=== PATIENT | female | born 1990 | race Caucasian/White ===

== ENCOUNTER 2017-12-22 04:56 | Emergency (ER) | payer OTHER ==
[2017-12-22] MEDS ORDERED: ISOVUE-370 76% 100ML VIAL (Q9967) As Ordered (05:48)
[2017-12-22 05:55] LABS: HEMATOCRIT 46.7 % (36.0-47.0); HEMOGLOBIN 15.8 g/dl (12.0-16.0); MEAN CORPUSCULAR HEMOGLOBIN 29.6 pg (27.0-33.0); MEAN CORPUSCULAR HGB CONC 33.8 g/dl (32.0-36.5); MEAN CORPUSCULAR VOLUME 87.5 fl (80.0-96.0); PLATELET COUNT, AUTOMATED 304 10^3/uL (150-450); RED BLOOD COUNT 5.34 10^6/uL (4.00-5.40); RED CELL DISTRIBUTION WIDTH 13.5 % (11.5-14.5); WHITE BLOOD COUNT 20.8 10^3/uL (4.0-10.0)
[2017-12-22 06:09] LABS: INR 0.93; PARTIAL THROMBOPLASTIN TIME 26.6 SECONDS (26.8-37.9); PROTHROMBIN TIME 12.5 SECONDS (12.4-14.5)
[2017-12-22 06:12] LABS: CONTROL LINE HCG INT CTR LINE PRESENT; HCG, SERUM QUALITATIVE NEGATIVE (NEGATIVE)
[2017-12-22 06:13] LABS: ALBUMIN 4.2 GM/DL (3.2-5.2); ALBUMIN/GLOBULIN RATIO 1.17 (1.00-1.93); ALKALINE PHOSPHATASE 84 U/L (45-117); ALT/SGPT 23 U/L (12-78); ANION GAP 11 MEQ/L (8-16); AST/SGOT 24 U/L (7-37); BILIRUBIN,TOTAL 0.4 MG/DL (0.2-1.0); BLOOD UREA NITROGEN 13 MG/DL (7-18); CALCIUM LEVEL 9.4 MG/DL (8.5-10.1); CARBON DIOXIDE LEVEL 25 MEQ/L (21-32); CHLORIDE LEVEL 111 MEQ/L (98-107); CREATININE FOR GFR 0.68 MG/DL (0.55-1.30); GLOMERULAR FILTRATION RATE > 60.0 (>60); GLUCOSE, FASTING 100 MG/DL (70-100); LIPASE 290 U/L (73-393); SODIUM LEVEL 147 MEQ/L (136-145); TOTAL PROTEIN 7.8 GM/DL (6.4-8.2)
[2017-12-22 08:10] LABS: AMYLASE 70 U/L (25-115); CK-MB VALUE MASS 1.9 NG/ML (0.0-3.6); CPK CREATINE PHOSPHOKINASE 105 U/L (26-192); ETHYL ALCOHOL (ETHANOL) 0.163 % (0.000-0.010); TROPONIN I < 0.02 NG/ML (< 0.10)
[2017-12-22 10:21] LABS: HEMATOCRIT 43.3 % (36.0-47.0); HEMOGLOBIN 14.7 g/dl (12.0-16.0); MEAN CORPUSCULAR HEMOGLOBIN 29.5 pg (27.0-33.0); MEAN CORPUSCULAR HGB CONC 33.9 g/dl (32.0-36.5); MEAN CORPUSCULAR VOLUME 86.9 fl (80.0-96.0); PLATELET COUNT, AUTOMATED 289 10^3/uL (150-450); RED BLOOD COUNT 4.98 10^6/uL (4.00-5.40); RED CELL DISTRIBUTION WIDTH 13.7 % (11.5-14.5); WHITE BLOOD COUNT 17.5 10^3/uL (4.0-10.0)
[2017-12-22] MEDS: ONDANSETRON 4MG/2ML VIAL (J2405) IV (10:30)
[2017-12-22] MEDS ORDERED: NS 1,000 ML IV (10:48)
[2017-12-22] MEDS: NS 1,000 ML IV (11:00)
[2017-12-22] MEDS: MORPHINE 4 MG/ML 1ML VIAL (J2270) IV (11:01)
== END 2017-12-22 12:11 | disposition home or self-care (01) ==
LOC: M ED 04:56
DX: Z04.1 Encounter for examination and observation following transport accident (principal); S22.20XA Unspecified fracture of sternum, initial encounter for closed fracture; S80.11XA Contusion of right lower leg, initial encounter; W22.11XA Striking against or struck by driver side automobile airbag, initial encounter; V48.5XXA Car driver injured in noncollision transport accident in traffic accident, initial encounter; Y92.410 Unspecified street and highway as the place of occurrence of the external cause; Z88.5 Allergy status to narcotic agent; Z88.2 Allergy status to sulfonamides; Z91.048 Other nonmedicinal substance allergy status
CPT/HCPCS: J2270

== ENCOUNTER 2017-12-25 12:38 | Emergency (ER) | payer OTHER ==
[2017-12-25] MEDS: MORPHINE 10 MG/ML 1ML VIAL (J2270) IM (14:52)
[2017-12-25] MEDS: METOCLOPRAMIDE INJ 10MG/2ML VIAL (J2765) IM (14:52)
== END 2017-12-25 15:15 | disposition home or self-care (01) ==
LOC: M ED 12:38
DX: S22.20XD Unspecified fracture of sternum, subsequent encounter for fracture with routine healing (principal); S06.0X0D Concussion without loss of consciousness, subsequent encounter; V87 Traffic accident of specified type but victim's mode of transport unknown; Z88.2 Allergy status to sulfonamides; Z91.048 Other nonmedicinal substance allergy status
CPT/HCPCS: J2765

== ENCOUNTER → 2018-02-13 | Outpatient (REF) | payer BC | LOC: M LAB REF 19:21 | DX: N39.0 Urinary tract infection, site not specified (principal) | CPT/HCPCS: 87186 ==

== ENCOUNTER 2018-06-03 10:07 | Inpatient (IN) | payer BC ==
[2018-06-03 10:46] LABS: HEMATOCRIT 43.7 % (36.0-47.0); HEMOGLOBIN 14.8 g/dl (12.0-15.5); MEAN CORPUSCULAR HEMOGLOBIN 30.6 pg (27.0-33.0); MEAN CORPUSCULAR HGB CONC 33.9 g/dl (32.0-36.5); MEAN CORPUSCULAR VOLUME 90.3 fl (80.0-96.0); PLATELET COUNT, AUTOMATED 269 10^3/uL (150-450); RED BLOOD COUNT 4.84 10^6/uL (4.00-5.40); RED CELL DISTRIBUTION WIDTH 13.1 % (11.5-14.5); WHITE BLOOD COUNT 11.1 10^3/uL (4.0-10.0)
[2018-06-03 11:00] LABS: CONTROL LINE HCG INT CTR LINE PRESENT; HCG, SERUM QUALITATIVE NEGATIVE (NEGATIVE)
[2018-06-03 11:15] LABS: ALBUMIN 3.8 GM/DL (3.2-5.2); ALBUMIN/GLOBULIN RATIO 1.06 (1.00-1.93); ALKALINE PHOSPHATASE 75 U/L (45-117); ALT/SGPT 18 U/L (12-78); ANION GAP 9 MEQ/L (8-16); AST/SGOT 11 U/L (7-37); BILIRUBIN,DIRECT 0.1 MG/DL (0.0-0.2); BILIRUBIN,TOTAL 0.3 MG/DL (0.2-1.0); BLOOD UREA NITROGEN 14 MG/DL (7-18); CALCIUM LEVEL 8.7 MG/DL (8.5-10.1); CARBON DIOXIDE LEVEL 23 MEQ/L (21-32); CHLORIDE LEVEL 113 MEQ/L (98-107); CREATININE FOR GFR 0.83 MG/DL (0.55-1.30); ETHYL ALCOHOL (ETHANOL) 0.033 % (0.000-0.010); GLOMERULAR FILTRATION RATE > 60.0 (>60); GLUCOSE, FASTING 92 MG/DL (70-100); POTASSIUM SERUM 4.1 MEQ/L (3.5-5.1); SALICYLATE LEVEL 2.8 MG/DL (5.0-30.0); SODIUM LEVEL 145 MEQ/L (136-145); TOTAL PROTEIN 7.4 GM/DL (6.4-8.2)
[2018-06-03 11:18] LABS: AMPHETAMINES LEVEL URINE NEGATIVE (NEGATIVE); BARBITURATES URINE NEGATIVE (NEGATIVE); BENZODIAZEPINES URINE NEGATIVE (NEGATIVE); CANNABINOIDS URINE NEGATIVE (NEGATIVE); COCAINE METABOLITE URINE NEGATIVE (NEGATIVE); METHADONE URINE NEGATIVE (NEGATIVE); OPIATES URINE NEGATIVE (NEGATIVE); PHENCYCLIDINE URINE NEGATIVE (NEGATIVE)
[2018-06-03 11:21] LABS: ACETAMINOPHEN LEVEL < 2.0 UG/ML (10.0-30.0)
[2018-06-03] MEDS: NICOTINE 21MG/24HR 1 EA TRANSDERMAL TD (13:13)
[2018-06-03] MEDS ORDERED: traZODone 50 MG TAB PO (18:30)
[2018-06-03] MEDS ORDERED: MAALOX 30 ML SUSP *UDC PO (18:30)
[2018-06-03] MEDS ORDERED: MOM 30ML SUSPENSION UDC PO (18:30)
[2018-06-03] MEDS ORDERED: OXAZEPAM 15 MG CAP PO (19:30)
[2018-06-03] MEDS: OXAZEPAM 15 MG CAP PO (21:27)
[2018-06-04] MEDS: FOLIC ACID 1 MG TAB PO (08:55)
[2018-06-04] MEDS: MULTIVITAMINS/MINERALS THERAP 1 TAB PO (08:55)
[2018-06-04] MEDS: THIAMINE 100 MG TAB PO (08:55)
[2018-06-04] MEDS: OXAZEPAM 15 MG CAP PO (08:55)
[2018-06-04] MEDS: NICOTINE 21MG/24HR 1 EA TRANSDERMAL TD (08:56)
[2018-06-04] MEDS ORDERED: BACITRACIN OINT 30GM TOP (10:00)
[2018-06-04 12:19] LABS: KETONE, URINE AUTO RFX NEGATIVE (NEGATIVE); MUCUS, URINE RFX SMALL (NEGATIVE); NITRITE, URINE AUTO RFX NEGATIVE (NEGATIVE); RBC, URINE AUTO RFX 9 /HPF (0-3); SPECIFIC GRAVITY UR AUTO RFX 1.006 (1.002-1.035); SQUAM EPITHELIAL CELL UR AURFX 20 /HPF (0-6)
[2018-06-04 12:26] LABS: LEUKOCYTE ESTERASE UR AUTO RFX 3+ (NEGATIVE); WBC, URINE AUTO RFX 91 /HPF (0-3)
[2018-06-04] MEDS: SERTRALINE HCL 50 MG TAB PO (15:27)
[2018-06-04] MEDS: LORazepam 1 MG TAB PO ×2 (15:32→18:00)
[2018-06-04] MEDS: IBUPROFEN 400 MG TAB PO (18:38)
[2018-06-04] MEDS: DOXEPIN 25 MG CAP PO (22:32)
[2018-06-04] MEDS: PRAZOSIN 1 MG CAP PO (22:33)
[2018-06-05] MEDS: LORazepam 1 MG TAB PO ×2 (06:00)
[2018-06-05 07:18] LABS: HEMATOCRIT 43.4 % (36.0-47.0); HEMOGLOBIN 14.7 g/dl (12.0-15.5); MEAN CORPUSCULAR HEMOGLOBIN 31.1 pg (27.0-33.0); MEAN CORPUSCULAR HGB CONC 33.9 g/dl (32.0-36.5); MEAN CORPUSCULAR VOLUME 91.8 fl (80.0-96.0); PLATELET COUNT, AUTOMATED 228 10^3/uL (150-450); RED BLOOD COUNT 4.73 10^6/uL (4.00-5.40); RED CELL DISTRIBUTION WIDTH 12.9 % (11.5-14.5); WHITE BLOOD COUNT 8.9 10^3/uL (4.0-10.0)
[2018-06-05] MEDS: NICOTINE 21MG/24HR 1 EA TRANSDERMAL TD (08:07)
[2018-06-05] MEDS: THIAMINE 100 MG TAB PO (08:07)
[2018-06-05] MEDS: MULTIVITAMINS/MINERALS THERAP 1 TAB PO (08:07)
[2018-06-05] MEDS: FOLIC ACID 1 MG TAB PO (08:07)
[2018-06-05] MEDS: SERTRALINE HCL 50 MG TAB PO (08:07)
[2018-06-05] MEDS: diphenhydrAMINE 25 MG CAP PO (11:50)
[2018-06-05] MEDS: OLANZapine ORAL DISINTEGRATING TAB 5MG PO (17:00)
[2018-06-05] MEDS: LORazepam 2 MG TAB PO (18:24)
[2018-06-05] MEDS: NALTREXONE 50 MG TAB PO (21:00)
[2018-06-05] MEDS: DOXEPIN 25 MG CAP PO (21:00)
[2018-06-05] MEDS: PRAZOSIN 1 MG CAP PO (21:00)
[2018-06-06] MEDS: MULTIVITAMINS/MINERALS THERAP 1 TAB PO (08:29)
[2018-06-06] MEDS: THIAMINE 100 MG TAB PO (08:29)
[2018-06-06] MEDS: FOLIC ACID 1 MG TAB PO (08:29)
[2018-06-06] MEDS: SERTRALINE HCL 50 MG TAB PO (08:29)
[2018-06-06] MEDS: NICOTINE 21MG/24HR 1 EA TRANSDERMAL TD (08:30)
[2018-06-06] MEDS: CIPROFLOXACIN 500 MG TAB PO ×2 (09:37→17:37)
[2018-06-06] MEDS: IBUPROFEN 400 MG TAB PO (16:25)
[2018-06-06] MEDS: NALTREXONE 50 MG TAB PO (21:39)
[2018-06-06] MEDS: PRAZOSIN 1 MG CAP PO (21:39)
[2018-06-06] MEDS: DOXEPIN 25 MG CAP PO (21:39)
[2018-06-07] MEDS: CIPROFLOXACIN 500 MG TAB PO ×2 (06:01→17:12)
[2018-06-07] MEDS: FOLIC ACID 1 MG TAB PO (08:34)
[2018-06-07] MEDS: SERTRALINE HCL 50 MG TAB PO (08:34)
[2018-06-07] MEDS: THIAMINE 100 MG TAB PO (08:34)
[2018-06-07] MEDS: MULTIVITAMINS/MINERALS THERAP 1 TAB PO (08:34)
[2018-06-07] MEDS: NICOTINE 21MG/24HR 1 EA TRANSDERMAL TD (08:35)
[2018-06-07] MEDS: IBUPROFEN 400 MG TAB PO (11:53)
[2018-06-07] MEDS: PRAZOSIN 1 MG CAP PO (21:00)
[2018-06-07] MEDS: DOXEPIN 25 MG CAP PO (21:00)
[2018-06-07] MEDS: NALTREXONE 50 MG TAB PO (21:00)
[2018-06-08] MEDS: CIPROFLOXACIN 500 MG TAB PO ×2 (06:09→17:03)
[2018-06-08] MEDS: FOLIC ACID 1 MG TAB PO (08:23)
[2018-06-08] MEDS: MULTIVITAMINS/MINERALS THERAP 1 TAB PO (08:23)
[2018-06-08] MEDS: NICOTINE 21MG/24HR 1 EA TRANSDERMAL TD (08:23)
[2018-06-08] MEDS: SERTRALINE HCL 50 MG TAB PO (08:24)
[2018-06-08] MEDS: THIAMINE 100 MG TAB PO (08:24)
[2018-06-08] MEDS: IBUPROFEN 400 MG TAB PO (17:03)
[2018-06-08] MEDS: NALTREXONE 50 MG TAB PO (21:56)
[2018-06-08] MEDS: DOXEPIN 25 MG CAP PO (21:56)
[2018-06-08] MEDS: PRAZOSIN 1 MG CAP PO (21:58)
[2018-06-09] MEDS: CIPROFLOXACIN 500 MG TAB PO (06:05)
[2018-06-09] MEDS: MULTIVITAMINS/MINERALS THERAP 1 TAB PO (08:31)
[2018-06-09] MEDS: SERTRALINE HCL 50 MG TAB PO (08:31)
[2018-06-09] MEDS: FOLIC ACID 1 MG TAB PO (08:31)
[2018-06-09] MEDS: THIAMINE 100 MG TAB PO (08:31)
[2018-06-09] MEDS: NICOTINE 21MG/24HR 1 EA TRANSDERMAL TD (08:32)
== END 2018-06-09 09:50 | disposition home or self-care (01) | DRG 755 ==
LOC: M PSY 06-04 06:21 → M ED 10:07 → M ED INP 16:16 → M PSY 16:46
DX: F43.10 Post-traumatic stress disorder, unspecified (principal); R45.851 Suicidal ideations; S50.311A Abrasion of right elbow, initial encounter; F17.210 Nicotine dependence, cigarettes, uncomplicated; D72.829 Elevated white blood cell count, unspecified; Z88.2 Allergy status to sulfonamides; J30.2 Other seasonal allergic rhinitis; R35.0 Frequency of micturition; X58.XXXA Exposure to other specified factors, initial encounter; Y92.9 Unspecified place or not applicable; Y93.9 Activity, unspecified

== ENCOUNTER → 2018-06-10 | Outpatient (CLI) | payer BC | LOC: M OUTALCOH 09:01 | DX: F10.20 Alcohol dependence, uncomplicated (principal) ==

== ENCOUNTER 2018-10-31 03:53 | Inpatient (IN) | payer BC, SELFPAY ==
[~2018-10-31] VITALS: Ht 160 cm; Wt 75.7 kg
[~2018-10-31 03:53] MED LIST: ACAM0.05 PO; CIPR-249 PO; DEBL1TAB PO; DIPH25CA PO; DOXE25CA PO; IBUP80TA PO; MINI1CAP PO; NALT50TA4 PO; NORCOTAB PO; PERC5TAB12 PO; REGL10TA6 PO; SERT50TA PO
[2018-10-31] MEDS ORDERED: HYDR-643 PO (04:08)
[2018-10-31] MEDS ORDERED: PROZ20CA11 PO (04:08)
[2018-10-31] MEDS ORDERED: TRAZ-160 (04:08)
[2018-10-31] MEDS ORDERED: PRAZ1CAP (04:08)
[2018-10-31] MEDS ORDERED: LORA0.5T11 PO (04:08)
[2018-10-31 04:15] LABS: BASO # 0.1 10^3/uL (0.0-0.2); BASO % 0.8 % (0.0-1.0); EOS # 0.3 10^3/uL (0.0-0.50); EOS % 2.4 % (0.0-3.0); HEMATOCRIT 46.1 % (36.0-47.0); HEMOGLOBIN 15.7 g/dl (12.0-15.5); LYMPH # 3.3 10^3/uL (1.5-6.5); LYMPH % 26.7 % (24.0-44.0); MEAN CORPUSCULAR HEMOGLOBIN 30.7 pg (27.0-33.0); MEAN CORPUSCULAR HGB CONC 34.1 g/dl (32.0-36.5); MONO # 0.9 10^3/uL (0.0-0.8); NEUTROPHILS # 7.7 10^3/uL (1.8-7.7); NEUTROPHILS % 62.5 % (36.0-66.0); PLATELET COUNT, AUTOMATED 290 10^3/uL (150-450); RED BLOOD COUNT 5.12 10^6/uL (4.00-5.40); WHITE BLOOD COUNT 12.2 10^3/uL (4.0-10.0)
[2018-10-31] MEDS ORDERED: NS 1,000 ML IV ONE ×4 (04:15→10:00)
[2018-10-31 04:39] LABS: OSMOLALITY SERUM 370 MOSM/KG (275-295)
[2018-10-31 04:42] LABS: HCG, SERUM QUALITATIVE NEGATIVE (NEGATIVE)
[2018-10-31 05:02] LABS: ACETAMINOPHEN LEVEL < 2.0 UG/ML (10.0-30.0); ALBUMIN 3.9 GM/DL (3.2-5.2); ALT/SGPT 19 U/L (12-78); BILIRUBIN,DIRECT < 0.1 MG/DL (0.0-0.2); BILIRUBIN,TOTAL 0.2 MG/DL (0.2-1.0); BLOOD UREA NITROGEN 13 MG/DL (7-18); CALCIUM LEVEL 8.6 MG/DL (8.5-10.1); CARBON DIOXIDE LEVEL 23 MEQ/L (21-32); CHLORIDE LEVEL 112 MEQ/L (98-107); CPK CREATINE PHOSPHOKINASE 104 U/L (26-192); CREATININE FOR GFR 0.92 MG/DL (0.55-1.30); ETHYL ALCOHOL (ETHANOL) 0.238 % (0.000-0.010); GLOMERULAR FILTRATION RATE > 60.0 (>60); GLUCOSE, FASTING 93 MG/DL (70-100); POTASSIUM SERUM 3.8 MEQ/L (3.5-5.1); SALICYLATE LEVEL < 1.7 MG/DL (5.0-30.0); SODIUM LEVEL 146 MEQ/L (136-145); TOTAL PROTEIN 7.3 GM/DL (6.4-8.2)
[2018-10-31 06:11] LABS: ABG BASE EXCESS -7.1 (-2.0-2.0); ABG HCO3 19.1 MEQ/L (22.0-26.0); ABG O2 SATURATION 95.9 % (95.0-99.0); ABG PARTIAL PRESSURE O2 88.8 mmHg (75.0-100.0); ABG STANDARD HCO3 18.7 MEQ/L (22.0-26.0); ABG TOTAL CO2 20.4 MEQ/L (22.0-29.0); ABG pH (ARTERIAL) 7.287 UNITS (7.350-7.450)
[2018-10-31 06:32] LABS: AMPHETAMINES LEVEL URINE NEGATIVE (NEGATIVE); BARBITURATES URINE NEGATIVE (NEGATIVE); BENZODIAZEPINES URINE NEGATIVE (NEGATIVE); CANNABINOIDS URINE NEGATIVE (NEGATIVE); COCAINE METABOLITE URINE NEGATIVE (NEGATIVE); METHADONE URINE NEGATIVE (NEGATIVE); OPIATES URINE NEGATIVE (NEGATIVE); PHENCYCLIDINE URINE NEGATIVE (NEGATIVE)
[2018-10-31 07:14] LABS: ABG BASE EXCESS -6.7 (-2.0-2.0); ABG HCO3 18.1 MEQ/L (22.0-26.0); ABG O2 SATURATION 98.1 % (95.0-99.0); ABG TOTAL CO2 19.1 MEQ/L (22.0-29.0); ABG pH (ARTERIAL) 7.343 UNITS (7.350-7.450)
[2018-10-31] MEDS: NICOTINE 21MG/24HR 1 EA TRANSDERMAL TD SCH (09:00)
--- NOTE | 2018-10-31 09:43 | ECGEPIP ---
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
[2018-10-31] MEDS ORDERED: DIPH25CA PO (13:38)
[2018-10-31] MEDS ORDERED: SERT50TA PO (13:40)
[2018-10-31] MEDS ORDERED: PRAZ1CAP PO (13:40)
[2018-10-31] MEDS ORDERED: MAALOX 30 ML SUSP *UDC PO PRN (18:45)
[2018-10-31] MEDS ORDERED: LORazepam 2 MG TAB PO PRN (18:45)
[2018-10-31] MEDS ORDERED: MOM 30ML SUSPENSION UDC PO PRN (18:45)
[2018-10-31] MEDS ORDERED: traZODone 50 MG TAB PO PRN (18:45)
[2018-10-31] MEDS ORDERED: ACETAMINOPHEN TAB 650MG DOSE (2X325MG) PO PRN (18:45)
[2018-10-31] MEDS: FOLIC ACID 1 MG TAB PO SCH (19:36)
[2018-10-31] MEDS: MULTIVITAMINS/MINERALS THERAP 1 TAB PO SCH (19:37)
[2018-10-31] MEDS: THIAMINE 100 MG TAB PO SCH (19:37)
[2018-10-31 20:35] VITALS: BP 116/67
[2018-11-01 06:33] VITALS: BP 112/72
[2018-11-01 08:47] VITALS: BP 112/72
[2018-11-01] MEDS: MULTIVITAMINS/MINERALS THERAP 1 TAB PO SCH (09:15)
[2018-11-01] MEDS: THIAMINE 100 MG TAB PO SCH ×2 (09:15→21:48)
[2018-11-01] MEDS: NICOTINE 21MG/24HR 1 EA TRANSDERMAL TD SCH (09:15)
[2018-11-01] MEDS: FOLIC ACID 1 MG TAB PO SCH (09:15)
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
[2018-11-01] MEDS: FLUoxetine 10 MG CAP PO SCH (10:17)
[2018-11-01 16:00] VITALS: BP 114/56
[2018-11-01 18:00] VITALS: BP 114/56
[2018-11-01] MEDS: CEPHALEXIN 500 MG CAP PO SCH (21:48)
[2018-11-01] MEDS: PRAZOSIN 1 MG CAP PO SCH (21:48)
[2018-11-01] MEDS: BACITRACIN OINT 30GM TOP SCH (22:15)
[2018-11-01] MEDS: diphenhydrAMINE 50 MG CAP PO PRN (22:43)
[2018-11-02 06:42] VITALS: BP 102/51
[2018-11-02 07:02] LABS: BASO # 0.1 10^3/uL (0.0-0.2); BASO % 0.4 % (0.0-1.0); EOS # 0.3 10^3/uL (0.0-0.50); HEMATOCRIT 43.9 % (36.0-47.0); HEMOGLOBIN 14.8 g/dl (12.0-15.5); LYMPH # 3.4 10^3/uL (1.5-6.5); LYMPH % 24.8 % (24.0-44.0); MEAN CORPUSCULAR HGB CONC 33.7 g/dl (32.0-36.5); MEAN CORPUSCULAR VOLUME 91.8 fl (80.0-96.0); MONO # 0.9 10^3/uL (0.0-0.8); MONO % 6.9 % (0.0-5.0); NEUTROPHILS # 8.8 10^3/uL (1.8-7.7); NEUTROPHILS % 65.5 % (36.0-66.0); PLATELET COUNT, AUTOMATED 248 10^3/uL (150-450); RED BLOOD COUNT 4.78 10^6/uL (4.00-5.40); WHITE BLOOD COUNT 13.5 10^3/uL (4.0-10.0)
[2018-11-02 07:38] LABS: ALBUMIN 3.8 GM/DL (3.2-5.2); ALT/SGPT 20 U/L (12-78); BILIRUBIN,TOTAL 0.5 MG/DL (0.2-1.0); BLOOD UREA NITROGEN 11 MG/DL (7-18); CALCIUM LEVEL 9.4 MG/DL (8.5-10.1); CARBON DIOXIDE LEVEL 26 MEQ/L (21-32); CHLORIDE LEVEL 107 MEQ/L (98-107); CREATININE FOR GFR 0.99 MG/DL (0.55-1.30); FREE THYROXINE INDEX 2.3 % (1.3-4.8); GLOMERULAR FILTRATION RATE > 60.0 (>60); GLUCOSE, FASTING 77 MG/DL (70-100); POTASSIUM SERUM 4.3 MEQ/L (3.5-5.1); SODIUM LEVEL 140 MEQ/L (136-145); T UPTAKE 32 % (30-39); THYROXINE (T4) 7.3 UG/DL (4.5-12.0); TOTAL PROTEIN 7.2 GM/DL (6.4-8.2)
[2018-11-02 08:00] VITALS: BP 102/51
[2018-11-02] MEDS: NICOTINE 21MG/24HR 1 EA TRANSDERMAL TD SCH (08:47)
[2018-11-02] MEDS: MULTIVITAMINS/MINERALS THERAP 1 TAB PO SCH (08:48)
[2018-11-02] MEDS: BACITRACIN OINT 30GM TOP SCH ×2 (08:48→21:30)
[2018-11-02] MEDS: FOLIC ACID 1 MG TAB PO SCH (08:48)
[2018-11-02] MEDS: CEPHALEXIN 500 MG CAP PO SCH ×3 (08:48→21:29)
[2018-11-02] MEDS: THIAMINE 100 MG TAB PO SCH ×2 (08:48→21:29)
[2018-11-02] MEDS: FLUoxetine 10 MG CAP PO SCH (08:48)
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
[2018-11-02 18:00] VITALS: BP 112/81
[2018-11-02] MEDS: PRAZOSIN 1 MG CAP PO SCH (21:29)
[2018-11-02] MEDS: diphenhydrAMINE 50 MG CAP PO PRN (21:29)
[2018-11-02 21:50] VITALS: BP 121/80
[2018-11-02] MEDS: PHENAZOPYRIDINE 100 MG TAB PO SCH (22:31)
[2018-11-03 06:19] VITALS: BP 98/54
[2018-11-03 09:09] VITALS: BP 108/59
[2018-11-03 09:12] VITALS: BP 108/59
[2018-11-03] MEDS: FLUoxetine 10 MG CAP PO SCH (09:13)
[2018-11-03] MEDS: NICOTINE 21MG/24HR 1 EA TRANSDERMAL TD SCH (09:13)
[2018-11-03] MEDS: PHENAZOPYRIDINE 100 MG TAB PO SCH ×2 (09:13→21:50)
[2018-11-03] MEDS: THIAMINE 100 MG TAB PO SCH (09:13)
[2018-11-03] MEDS: FOLIC ACID 1 MG TAB PO SCH (09:13)
[2018-11-03] MEDS: MULTIVITAMINS/MINERALS THERAP 1 TAB PO SCH (09:13)
[2018-11-03] MEDS: CEPHALEXIN 500 MG CAP PO SCH ×3 (09:13→21:50)
[2018-11-03] MEDS: BACITRACIN OINT 30GM TOP SCH ×2 (09:13→21:51)
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
[2018-11-03 12:30] VITALS: BP 109/56
[2018-11-03 18:00] VITALS: BP 112/56
[2018-11-03 21:51] VITALS: BP 119/64
[2018-11-03] MEDS: diphenhydrAMINE 50 MG CAP PO PRN (21:51)
[2018-11-03] MEDS: PRAZOSIN 1 MG CAP PO SCH (21:51)
[2018-11-04 06:30] VITALS: BP 112/60
[2018-11-04 07:33] LABS: HEMATOCRIT 45.1 % (36.0-47.0); HEMOGLOBIN 14.8 g/dl (12.0-15.5); MEAN CORPUSCULAR HEMOGLOBIN 30.5 pg (27.0-33.0); MEAN CORPUSCULAR HGB CONC 32.8 g/dl (32.0-36.5); PLATELET COUNT, AUTOMATED 249 10^3/uL (150-450); RED BLOOD COUNT 4.85 10^6/uL (4.00-5.40); WHITE BLOOD COUNT 9.8 10^3/uL (4.0-10.0)
[2018-11-04] MEDS: BACITRACIN OINT 30GM TOP SCH (08:40)
[2018-11-04] MEDS: NICOTINE 21MG/24HR 1 EA TRANSDERMAL TD SCH (08:40)
[2018-11-04] MEDS: PHENAZOPYRIDINE 100 MG TAB PO SCH (08:40)
[2018-11-04] MEDS: CEPHALEXIN 500 MG CAP PO SCH (08:40)
[2018-11-04] MEDS: FOLIC ACID 1 MG TAB PO SCH (08:40)
[2018-11-04] MEDS: MULTIVITAMINS/MINERALS THERAP 1 TAB PO SCH (08:40)
[2018-11-04] MEDS: FLUoxetine 10 MG CAP PO SCH (08:41)
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
[2018-11-04] MEDS ORDERED: PROZ10CA7 PO (08:53)
[2018-11-04] MEDS ORDERED: DIPH50CA PO (08:53)
[2018-11-04] MEDS ORDERED: MINI1CAP PO (08:53)
== END 2018-11-04 11:30 | disposition home or self-care (01) | DRG 755 ==
LOC: M ED 03:53 → M ED INP 18:44 → M PSY 20:35
PROVIDERS: ADMIT Psychiatry & Neurology Psychiatry; ATTEND Psychiatry & Neurology Psychiatry
DX: F43.10 Post-traumatic stress disorder, unspecified (principal); F32.9 Major depressive disorder, single episode, unspecified; F10.10 Alcohol abuse, uncomplicated; J30.2 Other seasonal allergic rhinitis; F17.210 Nicotine dependence, cigarettes, uncomplicated; L03.113 Cellulitis of right upper limb; E86.0 Dehydration; Z81.3 Family history of other psychoactive substance abuse and dependence; Z81.8 Family history of other mental and behavioral disorders; Z62.810 Personal history of physical and sexual abuse in childhood; Z62.811 Personal history of psychological abuse in childhood; Z91.410 Personal history of adult physical and sexual abuse; Z79.899 Other long term (current) drug therapy; Z88.2 Allergy status to sulfonamides

== ENCOUNTER → 2018-11-27 | Outpatient (CLI) | payer BC ==
[~2018-11-27] MED LIST changes: +DIPH50CA PO; +HYDR-643 PO; +LORA0.5T11 PO; +PRAZ1CAP; +PRAZ1CAP PO; +PROZ10CA7 PO; +PROZ20CA11 PO; +TRAZ-160
--- NOTE | 2018-11-27 12:23 | REP ---
FIRST TRIMESTER ULTRASOUND: Real-time sonographic evaluation of the gravid uterus performed. There is a single living intrauterine gestation with an estimated gestational age 6 weeks 5 days based on crown-rump length of 8 mm. EDC is 07/18/2019. heart rate is 120 beats per minute. There is no subchorionic hemorrhage. Small cystic structure left ovary measures 1 cm in diameter, possibly representing a corpus luteum. Blood flow is seen in each ovary with duplex Doppler evaluation. Electronically Signed by Tk England MD 11/27/2018 03:47 P
== END ==
LOC: M RAD 11:31
PROVIDERS: ATTEND Nurse Practitioner Family
DX: Z32.01 Encounter for pregnancy test, result positive (principal)

== ENCOUNTER → 2018-12-25 | Outpatient (CLI) | payer BC ==
[2018-12-25 13:32] LABS: BASO # 0.1 10^3/uL (0.0-0.2); BASO % 0.7 % (0.0-1.0); EOS # 0.2 10^3/uL (0.0-0.50); EOS % 1.3 % (0.0-3.0); HEMATOCRIT 41.7 % (36.0-47.0); HEMOGLOBIN 14.4 g/dl (12.0-15.5); LYMPH # 2.5 10^3/uL (1.5-6.5); LYMPH % 20.8 % (24.0-44.0); MEAN CORPUSCULAR HEMOGLOBIN 30.8 pg (27.0-33.0); MEAN CORPUSCULAR HGB CONC 34.5 g/dl (32.0-36.5); MEAN CORPUSCULAR VOLUME 89.3 fl (80.0-96.0); MONO # 0.9 10^3/uL (0.0-0.8); MONO % 7.6 % (0.0-5.0); NEUTROPHILS # 8.4 10^3/uL (1.8-7.7); NEUTROPHILS % 69.2 % (36.0-66.0); PLATELET COUNT, AUTOMATED 259 10^3/uL (150-450); RED BLOOD COUNT 4.67 10^6/uL (4.00-5.40); WHITE BLOOD COUNT 12.2 10^3/uL (4.0-10.0)
[2018-12-26 10:16] LABS: HEPATITIS C VIRUS ABY INDEX < 0.0 INDEX (<0.8); HIV 1&2 SCREEN CENTAUR NEGATIVE (NEGATIVE); RUBELLA IgG QUALITATIVE IMMUNE (IMMUNE)
== END ==
LOC: M SMT 08:27
PROVIDERS: ATTEND Advanced Practice Midwife
DX: Z34.82 Encounter for supervision of other normal pregnancy, second trimester (principal)

== ENCOUNTER → 2019-01-30 | Outpatient (REF) | payer BC ==
[~2019-01-30] MED LIST changes: +HYDR-3715 PO; -NORCOTAB PO; +SERT-141 PO; -SERT50TA PO
[2019-01-30 19:27] LABS: CHLAMYDIA DNA AMPLIFICATION NEGATIVE (NEGATIVE); GC DNA AMPLIFICATION NEGATIVE (NEGATIVE)
== END ==
LOC: M LAB REF 17:05
PROVIDERS: ATTEND Advanced Practice Midwife
DX: O99.342 Other mental disorders complicating pregnancy, second trimester (principal); Z3A.00 Weeks of gestation of pregnancy not specified

== ENCOUNTER 2019-02-18 18:37 | Outpatient (CLI) | payer BC ==
[~2019-02-18] VITALS: Ht 160 cm; Wt 77.1 kg
[~2019-02-18 18:37] MED LIST changes: -ACET-683 PO; -PRENTAB77 PO
[2019-02-18] MEDS ORDERED: PRENTAB77 PO (18:49)
[2019-02-18] MEDS ORDERED: PROZ10CA7 PO (18:49)
[2019-02-18] MEDS ORDERED: ACET-683 PO ×2 (18:49)
[2019-02-18 18:51] VITALS: BP 123/84
[2019-02-18] MEDS ORDERED: RHOGAM 300 MCG (1500 IU) INJ (J2790) IM SCH (19:15)
[2019-02-18 19:39] LABS: BASO # 0.1 10^3/uL (0.0-0.2); BASO % 0.5 % (0.0-1.0); EOS # 0.2 10^3/uL (0.0-0.50); EOS % 1.7 % (0.0-3.0); HEMATOCRIT 40.4 % (36.0-47.0); LYMPH # 2.8 10^3/uL (1.5-6.5); LYMPH % 24.4 % (24.0-44.0); MEAN CORPUSCULAR HEMOGLOBIN 30.6 pg (27.0-33.0); MEAN CORPUSCULAR HGB CONC 34.7 g/dl (32.0-36.5); MEAN CORPUSCULAR VOLUME 88.4 fl (80.0-96.0); MONO % 8.4 % (0.0-5.0); NEUTROPHILS # 7.3 10^3/uL (1.8-7.7); NEUTROPHILS % 64.6 % (36.0-66.0); PLATELET COUNT, AUTOMATED 271 10^3/uL (150-450); RED BLOOD COUNT 4.57 10^6/uL (4.00-5.40); WHITE BLOOD COUNT 11.3 10^3/uL (4.0-10.0)
[2019-02-18 19:54] LABS: INR 0.93; PROTHROMBIN TIME 12.6 SECONDS (12.1-14.4)
[2019-02-18 19:55] LABS: PARTIAL THROMBOPLASTIN TIME 28.7 SECONDS (25.4-37.6)
[2019-02-18 20:04] LABS: AMPHETAMINES URINE REFLEX NEGATIVE (NEGATIVE); BARBITURATES URINE REFLEX NEGATIVE (NEGATIVE); BENZODIAZEPINES URINE REFLEX NEGATIVE (NEGATIVE); CANNABINOIDS URINE REFLEX NEGATIVE (NEGATIVE); COCAINE METABOLITE URINE REFLE NEGATIVE (NEGATIVE); METHADONE URINE REFLEX NEGATIVE (NEGATIVE); OPIATES URINE REFLEX NEGATIVE (NEGATIVE); PHENCYCLIDINE URINE REFLEX NEGATIVE (NEGATIVE)
[2019-02-18 20:09] LABS: THYROXINE (T4) 11.3 UG/DL (4.5-12.0)
--- NOTE | 2019-02-19 08:07 | IPN ---
DATE OF VISIT: 02/18/2019 HISTORY OF PRESENT ILLNESS: Veronica is a 29-year-old 3, para 1-0-1-1 who presents to labor and delivery today directly from radiology following a routine anatomy scan at 18+ weeks gestation, noted to have an intrauterine demise, no cardiac activity. She denies vaginal bleeding, leakage of fluid or any regular contractions. Her care was initiated at [facility] in the first trimester. The course was complicated by smoking during , history of depression with Prozac 20 mg and today's diagnosis of intrauterine demise. OBSTETRICAL HISTORY: May 2010 at 41 weeks gestation vaginal delivery, 8 pounds 14 ounces female. April 2014 she had a elective termination. OBSTETRIC LABS: O+, antibody screen negative, rubella immune, VDRL nonreactive. Hep B surface antigen negative, HIV negative. Hep C antibody nonreactive. Gonorrhea and chlamydia negative. She did have panorama testing low risk for aneuploidy female fetus. PAST MEDICAL HISTORY: 1. Syrinx in back. 2. Migraines. 3. Anxiety and depression. SURGERIES: 1. Tonsils and adenoidectomy. 2. Cardiac ablation. 3. Tympanostomy tube insertion. FAMILY HISTORY: Cancer, arthritis, fibromyalgia, hysterectomy, ovarian cyst, hypertension, high cholesterol, Crohn's, heart disease, cardiomyopathy, brain cancer. SOCIAL HISTORY: The patient is single. She is a current smoker every day reports about one-third of a pack. Social alcohol use, denies any during . Denies drug use. Denies history of sexually transmitted disease, and denies history of abuse physical, sexual and emotional. ALLERGIES: SULFA. MEDICATIONS: - Prozac - vitamins OBJECTIVE: VITAL SIGNS: Temperature 99.9, pulse 89, respirations 18, blood pressure is 123/84. Obstetric ultrasound report findings consistent with intrauterine demise, fetus measures currently 17 weeks. By the first trimester ultrasound she should be 18-4/7 with an estimated date of confinement (EDC) of 07/18/2019. Kleihauer-Betke is negative. TSH is elevated 3.860, T4 11.3. Syphilis is pending. Her urine toxicology is negative. Fibrinogen 413. PT 12.6, PTT 28.7. CBC with WBC 11.3, hemoglobin 14.0, hematocrit 40.4. ASSESSMENT: Intrauterine for 18-4/7 weeks gestation, intrauterine demise. PLAN: 1. Discussion with the patient regarding demise. Intrauterine demise panel has been ordered. Those results are pending. Reviewed options of induction of labor surgical dilatation and evacuation (D and E). Review of the risks, benefits and alternatives were reviewed with the patient. All of her and her family's questions have been answered. She does desire surgical D and E and requests discharge to home today. I did review access to care, danger signs of which to report to her provider, and the office will contact her regarding surgical consent appointment as well as a scheduled surgery time.
[2019-02-24 11:01] LABS: DRVV SCREEN 46.9 SEC
[2019-02-24 11:09] LABS: PTT LUPUS TYPE ANTICOAG SCREEN 1.1 (0-1.2)
[2019-02-26 00:06] LABS: ANTI PARVO VIRUS LEVEL IGG 6.6 index (0.0-0.8); ANTI PARVO VIRUS LEVEL IgM 0.2 index (0.0-0.8); BETA-2 GLYCOPROTEIN I ABY IGA <9 (0-25); BETA-2 GLYCOPROTEIN I ABY IGG <9 (0-20); BETA-2 GLYCOPROTEIN I ABY IGM <9 (0-32); CARDIOLIPIN IGA ANTIBODY <9 APL U/mL (0-11); CARDIOLIPIN IGG ANTIBODY <9 GPL U/mL (0-14); CARDIOLIPIN IGM ANTIBODY 16 MPL U/mL (0-12); HERPES HUMAN VIRUS #6 IgG HVG 2.11 index (.); HSV IgM TYPES 1&2 1.24 Ratio (0.00-0.90); TOXOPLASMA IgG ABY <3.0 IU/mL (0.0-7.1)
== END 2019-02-18 21:30 | disposition home or self-care (01) ==
LOC: M LDO 18:37
PROVIDERS: ATTEND Advanced Practice Midwife
DX: O02.1 Missed abortion (principal)
CPT/HCPCS: 36415; 80307; 84436; 84443; 85025; 85384; 85460; 85610; 85730; 86146; 86147; 86694; 86747; 86777; 86778; 86780; 87532; G0378; G0463

== ENCOUNTER → 2019-02-18 | Outpatient (CLI) | payer BC ==
[~2019-02-18] MED LIST changes: +ACET-683 PO; +PRENTAB77 PO
--- NOTE | 2019-02-18 18:33 | REPVR ---
EXAM: US First Trimester, Transabdominal EXAM DATE/TIME: 02/18/2019 6:24 PM CLINICAL HISTORY: 29 years old, female; Signs and symptoms; Lmp or gestational age (in weeks): 17w0d; ; Patient HX: PT scheduled for routine anatomical survey, no fhr; Additional info: Anatomy TECHNIQUE: Imaging protocol: Real-time transabdominal obstetrical ultrasound of the maternal pelvis and a first trimester , less than 14 weeks 0 days, with image documentation. COMPARISON: US PELVIC NON OB COMPLETE 11/24/2013 11:37 AM FINDINGS: GESTATION: Gestation: Single intrauterine gestation. No motion demonstrated. Heart rate: Absent cardiac activity. Placenta: Unremarkable. No subchorionic bleed. Amniotic fluid: Amniotic and chorionic fluid are normal for gestational age. BIOMETRY: Estimated gestational age: Gestational age based on LMP is 24 weeks 6 days. Gestational age based on current ultrasound is 17 weeks. Biparietal diameter: BPD measures 3.5 cm Head circumference: Head circumference 12.9 cm Abdominal circumference: Abdominal circumference 11.3 cm Femur length: Femur length 2.4 cm. MATERNAL: Uterus: Unremarkable. Cervix: Unremarkable. Right adnexa: Unremarkable. Left adnexa: Unremarkable. Intraperitoneal: No intraperitoneal free fluid. IMPRESSION: Findings consistent with intrauterine demise. Electronically signed by: Joao Ortez On 02/18/2019 18:33:41 PM
== END ==
LOC: M RAD 17:08
PROVIDERS: ATTEND Advanced Practice Midwife
DX: O99.342 Other mental disorders complicating pregnancy, second trimester (principal); Z3A.00 Weeks of gestation of pregnancy not specified

== ENCOUNTER 2019-02-20 13:27 | Day surgery (SDC) | payer BC ==
[~2019-02-20] VITALS: Ht 160 cm; Wt 75.7 kg
[~2019-02-20 13:27] MED LIST changes: +ACET-683 PO; +PRENTAB77 PO
[2019-02-20 13:50] LABS: HEMATOCRIT 36.7 % (36.0-47.0); HEMOGLOBIN 12.7 g/dl (12.0-15.5); MEAN CORPUSCULAR HEMOGLOBIN 30.6 pg (27.0-33.0); MEAN CORPUSCULAR HGB CONC 34.6 g/dl (32.0-36.5); MEAN CORPUSCULAR VOLUME 88.4 fl (80.0-96.0); PLATELET COUNT, AUTOMATED 236 10^3/uL (150-450); RED BLOOD COUNT 4.15 10^6/uL (4.00-5.40); WHITE BLOOD COUNT 12.2 10^3/uL (4.0-10.0)
[2019-02-20] MEDS ORDERED: MORPHINE 4 MG/ML 1ML VIAL/SYRINGE (J2270) IV PRN (15:00)
[2019-02-20] MEDS ORDERED: LR 1,000 ML IV ONE (15:00)
[2019-02-20] MEDS ORDERED: fentaNYL 100 MCG/2 ML INJECTION (J3010) As Ordered ONE (15:37)
[2019-02-20] MEDS ORDERED: PROPOFOL 200 MG/20 ML VIAL As Ordered ONE (15:38)
[2019-02-20] MEDS ORDERED: LIDOCAINE 2% INJ 100 MG/5 ML SDV (FOR ANES.) As Ordered ONE (15:38)
[2019-02-20] MEDS ORDERED: MIDAZOLAM INJ 2 MG/2 ML VIAL (J2250) As Ordered ONE (15:38)
[2019-02-20] MEDS ORDERED: ROCURONIUM BROMIDE 50 MG/5 ML VIAL As Ordered ONE (15:52)
[2019-02-20] MEDS ORDERED: SUCCINYLCHOLINE 100 MG/5 ML SYRINGE (J0330) As Ordered ONE (15:52)
[2019-02-20] MEDS ORDERED: NEOSTIGMINE 10 MG/10 ML VIAL (J2710) As Ordered ONE (16:08)
[2019-02-20] MEDS ORDERED: GLYCOPYRROLATE INJ 0.2 MG/ML 2 ML VIAL As Ordered ONE (16:08)
[2019-02-20] MEDS ORDERED: KETOROLAC 60 MG/2 ML VIAL (J1885) As Ordered ONE (16:09)
[2019-02-20] MEDS ORDERED: dexameTHASONE 4 MG/ML 1ML VIAL (J1100) As Ordered ONE (16:09)
[2019-02-20] MEDS ORDERED: ONDANSETRON 4MG/2ML VIAL (J2405) As Ordered ONE (16:09)
[2019-02-20] MEDS ORDERED: METHYLERGONOVINE MALEATE 0.2 MG/ML VIAL (J2210) As Ordered ONE (16:15)
[2019-02-20] MEDS ORDERED: miSOPROStol 200 MCG TAB (S0191) As Ordered ONE (16:16)
[2019-02-20] MEDS ORDERED: PHENYLephrine HCL 500 MCG/5 ML (100MCG/ML) SYRINGE (J2370) As Ordered ONE (16:18)
[2019-02-20] MEDS ORDERED: DOXYCYCLINE HYCLATE 100 MG TAB PO ONE (17:00)
[2019-02-20] MEDS ORDERED: PERCOCET 5MG/325MG TAB PO PRN (17:00)
[2019-02-20] MEDS ORDERED: LR 1,000 ML IV SCH ×2 (17:00)
[2019-02-20] MEDS ORDERED: NORCO, ANEXSIA 5/325MG TABLET (HYDROcodone/ACETAMINOPHEN) PO PRN (17:00)
[2019-02-20] MEDS ORDERED: fentaNYL 100 MCG/2 ML INJECTION (J3010) IV PRN (17:00)
[2019-02-20] MEDS ORDERED: ONDANSETRON 4MG/2ML VIAL (J2405) IV PRN (17:00)
[2019-02-20 18:15] VITALS: BP 120/55
--- NOTE | 2019-02-24 13:33 | RO ---
DATE OF PROCEDURE: 02/20/2019 PREPROCEDURE DIAGNOSIS: 17-week intrauterine demise. POSTPROCEDURE DIAGNOSIS: 17-week intrauterine demise. PROCEDURE: Dilation and evacuation under ultrasound guidance. SURGEON: Dr. Zacarias Martínez. L TACKER: ANESTHESIA: General endotracheal. ESTIMATED BLOOD LOSS: 200 mL. FINDINGS: [id number] macerated fetus plus placenta. Stricture of the umbilical cord at its insertion into the abdominal wall. DESCRIPTION OF PROCEDURE: The patient was brought to the operating room where general endotracheal anesthesia was induced. She was prepped and draped in a sterile fashion in the dorsal lithotomy position. The two laminary and one sponge came out during the prep. The patient was noted to be 3-4 cm dilated. The fetus and part of the placenta was delivered en caul. The patient was still bleeding and still have evidence of retained tissue in the uterus based on intraoperative ultrasound. The patient was prepped and draped in a sterile fashion in the dorsal lithotomy position. A speculum was placed in the vagina. The anterior lip of the cervix was grasped with a tenaculum. The cervix was already dilated and a 12 mm suction curet was placed through the internal os, suction placed to evacuate and the curet was externally rotated. Products of conception were noted coming through the suction tube. Sharp curettage performed. Ultrasound guidance was used throughout the procedure. A normal endometrial stripe was noted at the end of the procedure. Due to some mild atony that occurred, the patient received 0.2 mg of Methergine intramuscular (IM). She also received 800 mcg of Cytotec per rectum. The patient was observed for several more minutes and bleeding was minimal. Ultrasound at the end of the procedure showed once again, a normal endometrial stripe. Sponge and instruments counts were correct.
== END 2019-02-20 19:00 | disposition home or self-care (01) ==
LOC: M SDC 13:27
PROVIDERS: ATTEND Specialist
DX: O02.1 Missed abortion (principal); F41.9 Anxiety disorder, unspecified; F32.9 Major depressive disorder, single episode, unspecified; Z79.899 Other long term (current) drug therapy; Z88.2 Allergy status to sulfonamides
CPT/HCPCS: 36415; 59820; 85027; 88305; J0330; J1100; J1885; J2210; J2250; J2270; J2370; J2405; J2710; J3010

== ENCOUNTER → 2019-05-25 | Outpatient (CLI) | payer BC ==
[~2019-05-25] MED LIST changes: -TRAZ-160; +TRAZ-252
== END ==
LOC: M SMT 13:19
PROVIDERS: ATTEND Advanced Practice Midwife
DX: Z34.81 Encounter for supervision of other normal pregnancy, first trimester (principal)

== ENCOUNTER → 2020-10-27 | Outpatient (CLI) | payer BC ==
[~2020-10-27] MED LIST changes: -DIPH25CA PO; +DIPH25CA32 PO; -LORA0.5T11 PO; +LORA0.5T5 PO
== END ==
LOC: M PLALAB 13:54
PROVIDERS: ATTEND Advanced Practice Midwife
DX: Z34.81 Encounter for supervision of other normal pregnancy, first trimester (principal)

== ENCOUNTER → 2020-11-29 | Outpatient (CLI) | payer OTHER | LOC: M WHC 13:49 | PROVIDERS: ATTEND Obstetrics & Gynecology | DX: Z34.92 Encounter for supervision of normal pregnancy, unspecified, second trimester (principal); Z3A.15 15 weeks gestation of pregnancy; Z53.9 Procedure and treatment not carried out, unspecified reason ==

== ENCOUNTER → 2020-12-23 | Outpatient (CLI) | payer OTHER ==
--- NOTE | 2020-12-23 09:53 | REP ---
INDICATION: ANATOMY. COMPARISON: None. TECHNIQUE: Real-time sonographic evaluation of the gravid uterus performed. FINDINGS: Estimated gestational age is18 weeks 2 days, EDC 05/24/2021. Presentation: Cephalic Placenta posterior, grade 1, without evidence of placenta previa. heart rate is recorded at 138 beats per minute. Amniotic fluid is subjectively normal. Closed cervical length is measured at 4.2 cm. There appears to be an anterior uterine fibroid 1.9 x 2.1 x 0.9 cm. Biometry chart: BPD: 37 mm, 17 weeks 1 days, 8th percentile. HC: 150 mm, 18 weeks 1 days, 44th percentile AC: 134 mm, 18 weeks 6 days, 62nd percentile Femur length: 29 mm, 19 weeks 0 days, 66th percentile HC to AC ratio: 1.13, normal range 1.07-1.26. Estimated weight: 256g, 74th percentile. anatomy: Cranium: Grossly normal Lateral Ventricles/Choroid Plexus: Grossly normal Posterior Fossa/Cerebellum: Grossly normal Nose/lips/profile: Grossly normal Four chamber heart: Grossly normal Right ventricular outflow tract: Grossly normal Left ventricular outflow tract: Grossly normal Left-sided stomach: Grossly normal Kidneys: Grossly normal Bladder: Grossly normal Cord Insertion: Grossly normal 3 vessel cord: Grossly normal Spine: Grossly normal IMPRESSION: Viable single intrauterine gestation as above. <Electronically signed by Tk England > 12/23/20 [id number]
== END ==
LOC: M WHC 08:00
PROVIDERS: ATTEND Obstetrics & Gynecology
DX: Z36.3 Encounter for antenatal screening for malformations (principal); Z3A.18 18 weeks gestation of pregnancy

== ENCOUNTER → 2021-02-28 | Outpatient (REF) | payer OTHER ==
[2021-02-28 11:31] LABS: HEMOGLOBIN 10.8 g/dl (12.0-15.5); MEAN CORPUSCULAR HEMOGLOBIN 30.4 pg (27.0-33.0); MEAN CORPUSCULAR HGB CONC 33.8 g/dl (32.0-36.5); MEAN CORPUSCULAR VOLUME 90.1 fl (80.0-96.0); PLATELET COUNT, AUTOMATED 263 10^3/uL (150-450); RED BLOOD COUNT 3.55 10^6/uL (4.00-5.40); WHITE BLOOD COUNT 11.9 10^3/uL (4.0-10.0)
== END ==
LOC: M PLALAB 08:30
PROVIDERS: ATTEND Advanced Practice Midwife
DX: Z34.92 Encounter for supervision of normal pregnancy, unspecified, second trimester (principal); Z3A.24 24 weeks gestation of pregnancy

== ENCOUNTER 2021-03-10 13:07 | Outpatient (CLI) | payer OTHER ==
[~2021-03-10] VITALS: Ht 160 cm; Wt 92.8 kg
[2021-03-10] MEDS ORDERED: ACET500P3 PO (13:15)
[2021-03-10] MEDS ORDERED: PNV-TAB2 PO (13:15)
[2021-03-10 13:21] VITALS: BP 135/65
[2021-03-10 14:28] LABS: HEMATOCRIT 33.3 % (36.0-47.0); HEMOGLOBIN 11.1 g/dl (12.0-15.5); MEAN CORPUSCULAR HEMOGLOBIN 29.6 pg (27.0-33.0); MEAN CORPUSCULAR HGB CONC 33.3 g/dl (32.0-36.5); MEAN CORPUSCULAR VOLUME 88.8 fl (80.0-96.0); PLATELET COUNT, AUTOMATED 288 10^3/uL (150-450); RED BLOOD COUNT 3.75 10^6/uL (4.00-5.40); WHITE BLOOD COUNT 12.8 10^3/uL (4.0-10.0)
--- NOTE | 2021-03-10 14:49 | REP ---
INDICATION: decreased movmenet.Hx demise. TECHNIQUE: Transabdominal FINDINGS: Multiple ultrasonographic images of the gravid uterus shows a single living intrauterine gestation in the cephalic presentation. Doppler interrogation of the heart shows a heart rate of 149 beats per minute. The placenta is posterior and not low-lying. The cervix measures 6.6 cm in length and is closed. The subjective amniotic fluid volume is within normal limits. The calculated amniotic fluid index is 15.8 within expected range 9.1 to 23.2. Doppler interrogation of the umbilical artery shows an AB ratio of 2.15. This is within the normal range. biophysical profile score is 2 for breathing, 2 for tone, 2 for movement, and 2 for amniotic fluid volume giving a sum total of 8/8. IMPRESSION: Limited OB ultrasound as described above. <Electronically signed by Blaise Aaron > 03/10/21 [id number]
[2021-03-10 14:59] VITALS: BP 113/57
[2021-03-10 15:00] LABS: ALT/SGPT 19 U/L (12-78); BILIRUBIN,TOTAL 0.2 MG/DL (0.2-1.0); CREATININE FOR GFR 0.45 MG/DL (0.55-1.30); GLOMERULAR FILTRATION RATE > 60.0 (>60); LDH LACTATE DEHYDROGENASE 136 U/L (84-246); URIC ACID 3.3 MG/DL (2.6-6.0)
[2021-03-10 15:23] LABS: CREATININE,RANDOM URINE 26.3 MG/DL; TOTAL PROTEIN,RANDOM URINE < 5.0 MG/DL (0.0-12.0)
--- NOTE | 2021-03-10 15:52 | IPNPDOC ---
Text Note Date of Service The patient was seen on 03/10/21. NOTE Outpatient 31yo VLAD 05/19/2021. Presents @ 30wks gestation with complaints of headache and decreased movement this am. Hx significant fo 18wk demise. No apparent distress. Normotensive Cat I tracing, no UC BPP 8/8. PreE panel WNL. Urine random protein <5.0, ratio 0.19 Pt is reassured. Pt reports she was Rx'd "something stronger than tylenol first trimester" and hasn't tried it since then. Discharged home. Has appt Saturday. PTL, daily FKC, warning reviewed. VS,Fishbone, I+O VS, Fishbone, I+O Laboratory Tests 03/10/21 14:09 03/10/21 14:11 Vital Signs Date Time Temp Pulse Resp B/P (MAP) Pulse Ox O2 Delivery O2 Flow Rate FiO2 03/10/21 14:59 90 113/57 (75) 03/10/21 13:21 18 Huma Angelo CNM March 10, 2021 15:52
== END 2021-03-10 15:47 | disposition home or self-care (01) ==
LOC: M LDO 13:07
PROVIDERS: ATTEND Advanced Practice Midwife
DX: O26.893 Other specified pregnancy related conditions, third trimester (principal); Z3A.30 30 weeks gestation of pregnancy; R51.9 Headache, unspecified; O36.8130 Decreased fetal movements, third trimester, not applicable or unspecified; Z88.2 Allergy status to sulfonamides
CPT/HCPCS: 36415; 59025; 76815; 76819; 76820; 82247; 82565; 82570; 83615; 84156; 84450; 84460; 84550; 85027; G0378; G0463

== ENCOUNTER → 2021-04-26 | Outpatient (REF) | payer OTHER ==
[~2021-04-26] MED LIST changes: +ACET500P3 PO; +PNV-TAB2 PO
== END ==
LOC: M SFHCWAGY 12:39
PROVIDERS: ATTEND Advanced Practice Midwife
DX: Z36.89 Encounter for other specified antenatal screening (principal); Z3A.36 36 weeks gestation of pregnancy

== ENCOUNTER → 2021-04-27 | Outpatient (CLI) | payer OTHER ==
--- NOTE | 2021-04-27 13:43 | REP ---
INDICATION: UTERINE SIZE DISCREPANCY,GROWTH. COMPARISON: 12/23/2020 TECHNIQUE: Transabdominal FINDINGS: Multiple ultrasonographic images of the gravid uterus shows a single living intrauterine gestation in the cephalic presentation. Doppler interrogation of the heart shows a heart rate of 142 beats per minute. The subjective amniotic fluid volume is within normal limits. The calculated amniotic fluid index is 11.9 with an expected range 7.5 to 24.5.. The placenta is posterior not low lying. The cervix measures 4 cm length and is closed. BPD: 9.3 cm 37 weeks 5 days HC: 33.0 cm 37 weeks 3 days AC: 33.2 cm 37 weeks 1 day FL: 7.2 cm 36 weeks 5 days The estimated weight is 3124 g which is at the 63rd percentile for 36 week 6 day gestational age. IMPRESSION: Single living intrauterine gestation as described above with an estimated gestational age of 37 weeks 0 days via composite criteria and an estimated date of delivery of 05/18/2021 by today's exam. <Electronically signed by Blaise Aaron > 04/27/21 [id number]
== END ==
LOC: M WHC 13:02
PROVIDERS: ATTEND Advanced Practice Midwife
DX: O26.849 Uterine size-date discrepancy, unspecified trimester (principal); Z3A.37 37 weeks gestation of pregnancy

== ENCOUNTER → 2021-05-12 | Outpatient (CLI) | payer OTHER | LOC: M LABSMTC 12:26 | PROVIDERS: ATTEND Specialist | DX: Z11.52 Encounter for screening for COVID-19 (principal) ==

== ENCOUNTER 2021-05-20 10:26 | Inpatient (IN) | payer OTHER ==
[2021-05-20] VITALS (11 sets, daily range): BP systolic 118–156; BP diastolic 60–83
[~2021-05-20] VITALS: Ht 160 cm; Wt 96.8 kg
[2021-05-20] MEDS ORDERED: PEPC1TAB5 PO (10:57)
[2021-05-20] MEDS ORDERED: LACTATED RINGER'S 1000 ML IV STA (11:39)
[2021-05-20] MEDS ORDERED: CARBOPROST TROMETHAMINE 250 MCG/ML AMP IM PRN (11:40)
[2021-05-20] MEDS ORDERED: LIDOCAINE 1% MDV 20ML VIAL INFIL PRN (11:40)
[2021-05-20] MEDS ORDERED: LR 1,000 ML IV SCH ×2 (11:40→18:05)
[2021-05-20] MEDS ORDERED: METHYLERGONOVINE MALEATE 0.2 MG/ML VIAL (J2210) IM PRN (11:40)
[2021-05-20] MEDS ORDERED: OXYTOCIN DRIP 30 UNITS in IV 1 EA IV PRN (11:40)
[2021-05-20 12:59] LABS: HEMATOCRIT 31.4 % (36.0-47.0); HEMOGLOBIN 10.2 g/dl (12.0-15.5); MEAN CORPUSCULAR HEMOGLOBIN 26.5 pg (27.0-33.0); MEAN CORPUSCULAR HGB CONC 32.5 g/dl (32.0-36.5); MEAN CORPUSCULAR VOLUME 81.6 fl (80.0-96.0); PLATELET COUNT, AUTOMATED 249 10^3/uL (150-450); RED BLOOD COUNT 3.85 10^6/uL (4.00-5.40); WHITE BLOOD COUNT 9.7 10^3/uL (4.0-10.0)
[2021-05-20] MEDS ORDERED: miSOPROStol 50MCG 1/2 TABLET PO SCH (13:30)
[2021-05-20] MEDS ORDERED: FENTANYL 2MCG/ML ROPIVACAINE 0.2% IN 0.9% NACL 100ML IVBAG As Ordered ONE (16:07)
[2021-05-20] MEDS ORDERED: OXYTOCIN 30 UNITS IN 0.9% NaCl 500ML IV BAG (J2590) As Ordered ONE (16:26)
[2021-05-20 16:55] LABS: CORD GAS ABE A -7.3; CORD GAS HCO3 A 18.8 MEQ/L; CORD GAS O2 SAT A 80.2 %; CORD GAS PH A 7.289 UNITS; CORD GAS PO2 A 37.4 mmHg; CORD GAS SBC A 18.2 MEQ/L
[2021-05-20 16:56] LABS: CORD GAS ABE V -5.5; CORD GAS O2 SAT V 88.8 %; CORD GAS PCO2 V 28.8 mmHg; CORD GAS PH V 7.413 UNITS; CORD GAS PO2 V 41.7 mmHg; CORD GAS SBC V 19.8 MEQ/L; CORD GAS TCO2 V 18.9 MEQ/L
[2021-05-20] MEDS ORDERED: METHYLERGONOVINE MALEATE 0.2 MG TAB PO PRN (17:45)
[2021-05-20] MEDS ORDERED: DOCUSATE SODIUM 100MG CAPSULE PO PRN (17:45)
[2021-05-20] MEDS ORDERED: IBUPROFEN 600MG TAB PO PRN (17:45)
[2021-05-20] MEDS ORDERED: ACETAMINOPHEN TAB 650MG DOSE (2X325MG) PO PRN (17:45)
[2021-05-20] MEDS ORDERED: MEASLES,MUMPS,RUBELLA VACCINE INJ (MMR-II) (90707) SC SCH (17:45)
[2021-05-20] MEDS ORDERED: DIBUCAINE 1% OINTMENT 30GM TOP PRN (17:45)
[2021-05-20] MEDS ORDERED: RHOGAM 300 MCG (1500 IU) INJ (J2790) IM SCH (17:45)
[2021-05-20] MEDS ORDERED: OXYTOCIN INJ 10 UNITS/ML VIAL (J2590) IV ONE (18:03)
[2021-05-20] MEDS ORDERED: OXYTOCIN DRIP 30 UNITS in IV 1 EA IV SCH (18:04)
[2021-05-20] MEDS ORDERED: PERCOCET 5MG/325MG TAB PO PRN (18:05)
[2021-05-20] MEDS ORDERED: METOCLOPRAMIDE INJ 10MG/2ML VIAL (J2765 PER 1) IV PRN (18:05)
[2021-05-20] MEDS ORDERED: fentaNYL 100 MCG/2 ML INJECTION (J3010) IV PRN (18:05)
[2021-05-20] MEDS ORDERED: ONDANSETRON 4MG/2ML VIAL IV PRN (18:05)
[2021-05-20] MEDS: IBUPROFEN 800 MG TAB PO PRN (19:07)
[2021-05-20] MEDS: ACETAMINOPHEN 500 MG TAB PO PRN (23:39)
[2021-05-21] MEDS: IBUPROFEN 800 MG TAB PO PRN ×2 (03:03→12:11)
[2021-05-21 05:56] VITALS: BP 116/72
--- NOTE | 2021-05-21 07:51 | HPE ---
HISTORY AND PHYSICAL DATE OF ADMISSION: 05/20/2021 HISTORY OF PRESENT ILLNESS: Veronica is a 31-year-old female, 4, para 1-0-2-1, who is being admitted at 40 and 1 weeks gestation for an induction up on evaluation on labor and delivery. She denies any headache, no contractions, no blurred vision, no rupture of membrane, no leakage of fluid. The patient received care at [facility]. Her record reviewed, essentially unremarkable. Blood type is O positive, rubella immune. Hepatitis negative, HIV negative, GC, Chlamydia negative. One hour sugar testing was within normal limits. Her GBS is negative. PAST MEDICAL HISTORY: Denies. PAST SURGICAL HISTORY: Denies. SOCIAL HISTORY: The patient is a former smoker. She denies any alcohol or drug use. REVIEW OF SYSTEMS: Unremarkable. PHYSICAL EXAMINATION: Normal appearing female in no acute distress. Abdomen soft, nontender, nondistended. Extremities: No clubbing, cyanosis or edema. Vaginal exam done. Cervix was closed, thick and posterior with a floating vertex. A bedside ultrasound done confirmed fetus in a vertex position. Tracing reviewed, category 1 tracing with no contractions. ASSESSMENT: Intrauterine at 40 and 1/7 weeks gestation, GBS negative, being admitted for an induction. PLAN: Admit to labor and delivery. Induction process discussed with the patient in great detail. We will proceed with Cytotec induction. Pain management also discussed. Patient is considering an epidural. We will continue to monitor, anticipate delivery. [facility]
[2021-05-21] MEDS: ACETAMINOPHEN 500 MG TAB PO PRN ×2 (09:25→19:53)
[2021-05-21] MEDS: PRENATAL VITAMINS CHEWABLE TABLET PO SCH (09:25)
[2021-05-21 18:32] VITALS: BP 114/68
--- NOTE | 2021-05-21 22:34 | DN ---
DELIVERY NOTE DATE OF DELIVERY: 05/20/2021 TIME OF : GENDER: Female APGARS: 9 and 9 LACERATIONS: First degree midline laceration ANESTHESIA: ESTIMATED BLOOD LOSS: 400 cc COUNTS: DESCRIPTION OF DELIVERY: Veronica is a 31-year-old female 4, para 1,0,2,1 who was admitted at 40-1/7 weeks gestation for induction and labor. She had one dose of sedative, precipitously progressed to fully dilated and had a precipitous delivery in bed with Dr. Epperson present. Upon my arrival, the placenta was found to be intact. The placenta was delivered spontaneously intact, three vessel cord. Patient delivered a live female infant, Apgars 9 and 9, weight 8 pounds 4 ounces. No complications. She had a first degree midline laceration, which was repaired by me with a 2-0 Chromic. Estimated blood was 400 cc. Both mother and baby in stable condition. [facility]
[2021-05-22 06:00] VITALS: BP 132/76
[2021-05-22] MEDS: IBUPROFEN 800 MG TAB PO PRN (09:17)
[2021-05-22] MEDS: PRENATAL VITAMINS CHEWABLE TABLET PO SCH (09:17)
== END 2021-05-22 13:37 | disposition home or self-care (01) | DRG 560 ==
LOC: M LDI 10:26 → M OBS 19:30
PROVIDERS: ADMIT Obstetrics & Gynecology; ATTEND Obstetrics & Gynecology
PROC: 10E0XZZ Delivery of Products of Conception, External Approach (ICD-10-PCS; principal; 2021-05-20)
PROC: 0HQ9XZZ Repair Perineum Skin, External Approach (ICD-10-PCS; 2021-05-20)
PROC: 3E0P7GC Introduction of Other Therapeutic Substance into Female Reproductive, Via Natural or Artificial Opening (ICD-10-PCS; 2021-05-20)
DX: O48.0 Post-term pregnancy (principal); Z3A.40 40 weeks gestation of pregnancy; O70.0 First degree perineal laceration during delivery; Z37.0 Single live birth; O62.3 Precipitate labor

== ENCOUNTER 2021-08-24 08:04 | Emergency (ER) | payer OTHER ==
[~2021-08-24] VITALS: Ht 160 cm; Wt 84.5 kg
[~2021-08-24 08:04] MED LIST changes: +PEPC1TAB5 PO
--- OUTSIDE RECORDS SUMMARY | 2021-08-24 08:11 | CCD | Continuity of Care Document ---
Author Author Veronica KAMARA Organization Unknown Address [address] [place] [address] Phone [phone] Care Team Providers Care Medical Records Assistant Name Role Phone Heather Holley D.O. AUTM [phone] [facility] AUTM [phone] Problems Active Problems Provider Date Posttraumatic stress disorder GIBSON Burleson Onset: 07/2021 Generalized anxiety disorder GIBSON Burleson Onset: 06/28 Social History Type Date Description Comments Sex Unknown ETOH Use Denies alcohol use Tobacco Use Start: Unknown Patient has never smoked Recreational Drug Use Denies Drug Use Exercise Type/Frequency Exercises regularly Sun Exposure Uses sunscreen Seat Belt/Car Seat Always uses seat belt Allergies, Adverse Reactions, Alerts Active Allergies Criticality Reaction | Severity Comments Date Sulfa Unable to assess criticality 11/17/2020 Medications Active Medications SIG Qnty Indications Ordering Provide r Date Cephalexin 500mg Capsules take one capsule by mouth every 12 hours for 14 days 24caps L70.8 Heather Hong D.O. 07/07/2021 Benzoyl Peroxide-Erythromycin 5-3% Gel apply pea sized to affected area every 12 hours as needed for acne 69.9gm L70.8 Heather Holley D.O. 07/07/2021 Tablets 1 by yann th every day Unknown Prozac 10mg Capsules 1 by mouth every day Unknown Norethindrone 0.35mg Tablets 1 by mouth every day Unknown Immunizations Description No Information Available Vital Signs Date Vital Result Comment 07/07/2021 9:43am BP Systolic 118 mmHg BP Diastolic 78 mmHg Height 63.2 inches 5'3.20" Weight 190.25 lb BMI (Body Mass Index) 33.5 kg/m2 Heart Rate 77 /min Respiratory Rate 18 /min Body Temperature 98.4 F O2 % BldC Oximetry 99 % [place] Body Weight 115 lb 11/25/2020 10:55am BP Systolic 122 mmHg BP Diastolic 76 mmHg Height 63.2 inches 5'3.20" Weight 189.00 lb BMI (Body Mass Index) 33.3 kg/m2 Heart Rate 101 /min Respiratory Rate 18 /min Body Temperature 98.9 F O2 % BldC Oximetry 99 % [place] Body Weight 115 lb Results Description No Information Available Procedures Date Code Description Status 07/07/2021 85486 Office/Outpatient Established Mo d MDM 30-39 Min Completed Medical Devices Description No Information Available Encounters Type Date Location Provider Dx Diagnosis Office Visit 07/07/2021 9:30a [facility] GIBSON Burleson F41.1 Generalized anxiety disorder F43.12 Post-traumatic stress disord er, chronic L70.8 Other acne Assessments Date Code Description Provider 07/07/2021 F41.1 Generalized anxiety disorder John GIBSON Bah 07/07/2021 F43.12 Post-traumatic stress disorder, chronic GIBSON Burleson 07/07/2021 L70.8 Other acne GIBSON Burleson Plan of Treatment Future Appointment(s):* 09/06/2021 9:30 am - GIBSON Burleson at [facility] Functional Status Description No Information Available Mental Status Description No Information Available Referrals Description No Information Available
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
--- OUTSIDE RECORDS SUMMARY | 2021-08-24 08:12 | CCD | Continuity of Care Document ---
Author Author Veronica KAMARA Organization Unknown Address [address] [place] [address] Phone [phone] Care Team Providers Care Travel Accommodation Inspector Name Role Phone Heather Holley D.O. AUTM [phone] [facility] AUTM [phone] Problems Active Problems Provider Date Posttraumatic stress [...] F O2 % BldC Oximetry 99 % [place] Body Weight 115 lb 11/25/2020 10:55am BP Systolic 122 mmHg BP Diastolic 76 mmHg Height 63.2 inches 5'3.20" Weight 189.00 lb BMI (Body Mass Index) 33.3 kg/m2 Heart Rate 101 /min Respiratory Rate 18 /min Body Temperature 98.9 F O2 % BldC Oximetry 99 % [place] Body Weight 115 lb Results Description No Information Available Procedures Description No Information Available Medical Devices Description No Information Available Encounters Description No Information Available Assessments Date Code Description Provider 07/07/2021 F41.1 Generalized anxiety disorder John GIBSON Bah 07/07/2021 F43.12 Post-traumatic stress disorder, chronic GIBSON Burleson 07/07/2021 L70.8 Other acne GIBSON Burleson Plan of Treatment Future Appointment(s):* 09/06/2021 9:30 am - GIBSON Burlseon at [facility] 07/07/2021 - GIBSON Burleson* F41.1 Generalized anxiety disorder* Comments: * Continue with Prozac 10 mg and follow up with [facility] in July as scheduled for your IUD. They can possibly increase our medication dosage as needed. * Follow up:* 2 month * F43.12 Post-traumatic stress disorder, chronic * L70.8 Other acne* New Medication:* Cephalexin 500 mg - take one capsule by mouth every 12 hours for 14 days * Benzoyl Peroxide-Erythromycin 5-3 % - apply pea sized to affected area every 12 hours as needed for acne Functional Status Description No Information Available Mental Status Description No Information Available Referrals Description No Information Available
--- OUTSIDE RECORDS SUMMARY | 2021-08-24 08:12 | CCD ---
Author Author [facility] Organization [facility] Address Unknown Phone Unavailable Care Team Providers Care Carpenters Name Role Phone Юлия Trammell PA Unavailable Unavailable O'afshin, A Amadou PA Unavailable Unavailable O'afshin, A Amadou PA Unavailable Unavailable O'afshin, A Amadou PA Unavailable Unavailable O'afshin, A Amadou PA Unavailable Unavailable O'afshin, A Amadou PA Unavailable Unavailable O'afshin, A Amadou PA Unavailable Unavailable O'afshin, A Amadou PA Unavailable Unavailable O'afshin, A Amadou PA Unavailable Unavailable O'afshin, A Amadou PA Unavailable Unavailable O'afshin, A Amadou PA Unavailable Unavailable O'afshin, A Amadou PA Unavailable Unavailable O'afshin, A Amadou PA Unavailable Unavailable O'afshin, A Amadou PA Unavailable Unavailable O'afshin, A Amadou PA Unavailable Unavailable O'afshin, A Amadou PA Unavailable Unavailable O'afshin, A Amadou PA Unavailable Unavailable O'afshin, A Amadou PA Unavailable Unavailable O'afshin, A Amadou PA Unavailable Unavailable O'afshin, A Amadou PA Unavailable Unavailable O'afshin, A Amadou PA Unavailable Unavailable O'afshin, A Amadou PA Unavailable Unavailable O'afshin, A Amadou PA Unavailable Unavailable O'afshin, A Amadou PA Unavailable Unavailable O'afshin, A Amadou PA Unavailable Unavailable O'afshin, A Amadou PA Unavailable Unavailable O'afshin, A Amadou PA Unavailable Unavailable O'afshin, A Amadou PA Unavailable Unavailable O'afshin, A Amadou PA Unavailable Unavailable O'afshin, A Amadou PA Unavailable Unavailable O'afshin, A Amadou PA Unavailable Unavailable O'afshin, A Amadou PA Unavailable Unavailable O'afshin, A Amadou PA Unavailable Unavailable Re-disclosure Warning The records that you are about to access may contain information from federally-assisted alcohol or drug abuse programs. If such information is present, then the following federally mandated warning applies: This information has been disclosed to you from records protected by federal confidentiality rules (42 CFR part 2). The federal rules prohibit you from making any further disclosure of this information unless further disclosure is expressly permitted by the written consent of the person to whom it pertains or as otherwise permitted by 42 CFR part 2. A general authorization for the release of medical or other information is NOT sufficient for this purpose. The Federal rules restrict any use of the information to criminally investigate or prosecute any alcohol or drug abuse patient.The records that you are about to access may contain highly sensitive health information, the redisclosure of which is protected by Article 27-F of the [facility] Public Health law. If you continue you may have access to information: Regarding HIV / AIDS; Provided by facilities licensed or operated by the [facility] Office of Mental Health; or Provided by the [facility] Office for People With Developmental Disabilities. If such information is present, then the following [facility] mandated warning applies: This information has been disclosed to you from confidential records which are protected by state law. State law prohibits you from making any further disclosure of this information without the specific written consent of the person to whom it pertains, or as otherwise permitted by law. Any unauthorized further disclosure in violation of state law may result in a fine or care home sentence or both. A general authorization for the release of medical or other information is NOT sufficient authorization for further disc losure. Family History Family Member Name Family Member Gender Family Member Status Date o f Status Description Data Source(s) Unknown Unknown Problem MEDENT ([facility]) Unknown Unknown Problem MEDENT ([facility]) Encounters Encounter Providers Location Date Indications Data Source(s ) Outpatient Attender: Amadou ARREAGA [facility] 07/07/2021 09:30:00 AM EDT MED[facility] ([facility]) [place] [address] [address] 05/26/2021 12:00:00 AM EDT eCW1 ([facility]) (WC ESTOB) [facility] [address] [place] [address] 05/17/2021 12:00:00 AM EDT eCW1 ([facility]) (WC ESTOB) [facility] [address] [place] [address] 05/10/2021 12:00:00 AM EDT eCW1 ([facility]) (WC ESTOB) [facility] [address] [place] [address] 05/03/2021 12:00:00 AM EDT eCW1 ([facility]) ( ESTOB) [facility] [address] [place] [address] 04/26/2021 12:00:00 AM EDT eCW1 ([facility]) (WC ESTOB) [facility] [address] [place] [address] 04/11/2021 12:00:00 AM EDT eCW1 ([facility]) (WC ESTOB) [facility] [address] [place] [address] 03/29/2021 12:00:00 AM EDT eCW1 ([facility]) (WC ESTOB) [facility] [address] [place] [address] 03/14/2021 12:00:00 AM EDT eCW1 ([facility]) [place] [address] [address] 03/10/2021 12:00:00 AM EDT eCW1 ([facility]) [place] [address] [address] 03/06/2021 12:00:00 AM EDT eCW1 ([facility]) [place] [address] [address] 03/01/2021 12:00:00 AM EDT eCW1 ([facility]) (WC ESTOB) [facility] [address] [place] [address] 02/28/2021 12:00:00 AM EDT eCW1 ([facility]) [place] [address] [address] 02/03/2021 12:00:00 AM EDT eCW1 ([facility]) (WC ESTOB) [facility] [address] [place] [address] 01/31/2021 12:00:00 AM EDT eCW1 ([facility]) ( ESTOB) [facility] [address] [place] [address] 01/03/2021 12:00:00 AM EST eCW1 ([facility]) ( ESTOB) [facility] [address] [place] [address] 11/30/2020 12:00:00 AM EST eCW1 ([facility]) Outpatient Attender: Amadou ARREAGA [facility] 11/25/2020 10:00:00 AM EST MEDENT ([facility]) ( ESTOB) [facility] Est OB [address] [place] [address] 11/02/2020 12:00:00 AM EST eCW1 ([facility]) ( ESTOB) [facility] [address] [place] [address] 10/18/2020 12:00:00 AM EST eCW1 ([facility]) ( NEWOB) [facility]Center New OB Visit [address] [place] [address] 10/06/2020 12:00:00 AM EST eCW1 ([facility]) Immunizations Vaccine Date Status Description Data Source(s) COVID-19 VACCINE Pfizer 07/21/2021 12:00:00 AM EDT completed [place] Vaccine Series Complete: YESThis Data wa s Submitted to [facility] Via [employer]. COVID-19 VACCINE Pfizer 06/30/2021 12:00:00 AM EDT completed [place] Vaccine Series Complete: NOThis Data was Submitted to [facility] Via [employer]. Tdap 03/14/2021 03:44:00 PM EDT completed e CW1 ([facility]) Tdap 03/14/2021 03:44:00 PM EDT completed e CW1 ([facility]) Tdap 03/14/2021 03:44:00 PM EDT completed e CW1 ([facility]) Tdap 03/14/2021 03:44:00 PM EDT completed e CW1 ([facility]) Tdap 03/14/2021 03:44:00 PM EDT completed e CW1 ([facility]) Tdap 03/14/2021 03:44:00 PM EDT completed e CW1 ([facility]) Tdap 03/14/2021 03:44:00 PM EDT completed e CW1 ([facility]) Tdap 03/14/2021 03:44:00 PM EDT completed e CW1 ([facility]) Tdap 03/14/2021 03:44:00 PM EDT completed e CW1 ([facility]) Medications Medication Brand Name Start Date Product Form Dose Route Admi nistrative Instructions Pharmacy Instructions Status Indications Reaction Description Data Source(s) Cephalexin 500 MG Oral Capsule Cephalexin 07/07/2021 12:00:00 AM EDT ORAL active MEDENT ([facility]) Benzoyl Peroxide 0.05 MG/MG / Erythromycin 0.03 MG/MG Topical Gel Benzoyl Peroxide-Erythromycin 07/07/2021 12:00:00 AM EDT a ctive MEDENT ([facility]) Benzoyl Peroxide 0.05 MG/MG / Erythromycin 0.03 MG/MG Topical Gel 3-5 % ERYTHROMYCIN/BENZOYL PEROXIDE 07/07/2021 12:00:00 AM EDT gel 46 APPLY A PEA SIZED TO AFFECTED AREA EVERY 12 HOURS NEEDED FOR ACNE APPLY A PEA SIZED TO AFFECTED AREA EVERY 12 HOURS NEEDED FOR ACNE SOLD: 07/12/2021 [facility] Cephalexin 500 MG Oral Capsule CEPHALEXIN 07/07/2021 12:00:00 AM EDT capsule 24 TAKE ONE CAPSULE BY MOUTH EVERY 12 HOURS FOR 14 DAYS T YEISON ONE CAPSULE BY MOUTH EVERY 12 HOURS FOR 14 DAYS SOLD: 07/12/2021 [facility] 10 mg 07/01/2021 12:00:00 AM EDT capsule 30 TAKE ONE CAPSULE BY MOUTH ONCE DAILY TAKE ONE CAPSULE BY MOUTH ONCE DAILY SOLD: 07/29/2021 [facility] 1 mg 07/01/2021 12:00:00 AM EDT tablet 6 TAKE ONE TABLET BY MOUTH THREE TIMES A DAY NEEDED FOR SEVERE ANXIETY MAXIMUM DAILY DOSE = 3 TAKE ONE TABLET BY MOUTH THREE TIMES A DAY NEEDED FOR SEVERE ANXIETY MAXIMUM DAILY DOSE = 3 SOLD: 07/02/2021 [facility] 0.35 mg 07/01/2021 12:00:00 AM EDT tablet 28 TAKE ONE TABLET BY MOUTH ONCE DAILY TAKE ONE TABLET BY MOUTH ONCE DAILY SOLD: 07/02/2021 [facility] 10 mg 07/01/2021 12:00:00 AM EDT capsule 30 TAKE ONE CAPSULE BY MOUTH ONCE DAILY TAKE ONE CAPSULE BY MOUTH ONCE DAILY SOLD: 07/02/2021 [facility] 0.35 mg 07/01/2021 12:00:00 AM EDT tablet 28 TAKE ONE TABLET BY MOUTH ONCE DAILY TAKE ONE TABLET BY MOUTH ONCE DAILY SOLD: 07/29/2021 [facility] ferrous sulfate 325 MG Oral Tablet Ferrous Sulfate 325 (65 Fe) MG Ferrous Sulfate 325 (65 Fe) MG 03/07/2021 12:00:00 AM EDT 1.0 {tablet} active Ferrous Sulfate 325 (65 Fe) MG eCW1 ([facility]) ferrous sulfate 325 MG Oral Tablet Ferrous Sulfate 325 (65 Fe) MG Ferrous Sulfate 325 (65 Fe) MG 03/07/2021 12:00:00 AM EDT 1.0 {tablet} active Ferrous Sulfate 325 (65 Fe) MG eCW1 ([facility]) ferrous sulfate 325 MG Oral Tablet Ferrous Sulfate 325 (65 Fe) MG Ferrous Sulfate 325 (65 Fe) MG 03/07/2021 12:00:00 AM EDT 1.0 {tablet} active Ferrous Sulfate 325 (65 Fe) MG eCW1 ([facility]) ferrous sulfate 325 MG Oral Tablet Ferrous Sulfate 325 (65 Fe) MG Ferrous Sulfate 325 (65 Fe) MG 03/07/2021 12:00:00 AM EDT 1.0 {tablet} active Ferrous Sulfate 325 (65 Fe) MG eCW1 ([facility]) ferrous sulfate 325 MG Oral Tablet Ferrous Sulfate 325 (65 Fe) MG Ferrous Sulfate 325 (65 Fe) MG 03/07/2021 12:00:00 AM EDT 1.0 {tablet} active Ferrous Sulfate 325 (65 Fe) MG eCW1 ([facility]) ferrous sulfate 325 MG Oral Tablet Ferrous Sulfate 325 (65 Fe) MG Ferrous Sulfate 325 (65 Fe) MG 03/07/2021 12:00:00 AM EDT 1.0 {tablet} active Ferrous Sulfate 325 (65 Fe) MG eCW1 ([facility]) ferrous sulfate 325 MG Oral Tablet Ferrous Sulfate 325 (65 Fe) MG Ferrous Sulfate 325 (65 Fe) MG 03/07/2021 12:00:00 AM EDT 1.0 {tablet} active Ferrous Sulfate 325 (65 Fe) MG eCW1 ([facility]) 325 mg (65 mg iron) 03/07/2021 12:00:00 AM EDT tablet 90 TAKE ONE TABLET BY MOUTH EVERY DAY TAKE ONE TABLET BY MOUTH EVERY DAY SOLD: 03/09/2021 [facility] ferrous sulfate 325 MG Oral Tablet Ferrous Sulfate 325 (65 Fe) MG Ferrous Sulfate 325 (65 Fe) MG 03/07/2021 12:00:00 AM EDT 1.0 {tablet} active Ferrous Sulfate 325 (65 Fe) MG eCW1 ([facility]) ferrous sulfate 325 MG Oral Tablet Ferrous Sulfate 325 (65 Fe) MG Ferrous Sulfate 325 (65 Fe) MG 03/07/2021 12:00:00 AM EDT 1.0 {tablet} active Ferrous Sulfate 325 (65 Fe) MG eCW1 ([facility]) ferrous sulfate 325 MG Oral Tablet Ferrous Sulfate 325 (65 Fe) MG Ferrous Sulfate 325 (65 Fe) MG 03/07/2021 12:00:00 AM EDT 1.0 {tablet} active Ferrous Sulfate 325 (65 Fe) MG eCW1 ([facility]) ferrous sulfate 325 MG Oral Tablet Ferrous Sulfate 325 (65 Fe) MG Ferrous Sulfate 325 (65 Fe) MG 03/07/2021 12:00:00 AM EDT 1.0 {tablet} active Ferrous Sulfate 325 (65 Fe) MG eCW1 ([facility]) Ferrous Sulfate 27 MG Ferrous Sulfate 27 MG 03/01/2021 12:00:00 AM EDT 1.0 {tablet} active Ferrous Sulfate 27 MG e CW1 ([facility]) Ferrous Sulfate 27 MG Ferrous Sulfate 27 MG 03/01/2021 12:00:00 AM EDT 1.0 {tablet} suspended Ferrous Sulfate 27 MG eCW1 ([facility]) Ferrous Sulfate 27 MG Ferrous Sulfate 27 MG 03/01/2021 12:00:00 AM EDT 1.0 {tablet} active Ferrous Sulfate 27 MG e CW1 ([facility]) Ferrous Sulfate 27 MG Ferrous Sulfate 27 MG 03/01/2021 12:00:00 AM EDT 1.0 {tablet} suspended Ferrous Sulfate 27 MG eCW1 ([facility]) Ferrous Sulfate 27 MG Ferrous Sulfate 27 MG 03/01/2021 12:00:00 AM EDT 1.0 {tablet} suspended Ferrous Sulfate 27 MG eCW1 ([facility]) Ferrous Sulfate 27 MG Ferrous Sulfate 27 MG 03/01/2021 12:00:00 AM EDT 1.0 {tablet} active Ferrous Sulfate 27 MG e CW1 ([facility]) Ferrous Sulfate 27 MG Ferrous Sulfate 27 MG 03/01/2021 12:00:00 AM EDT 1.0 {tablet} active Ferrous Sulfate 27 MG e CW1 ([facility]) Ferrous Sulfate 27 MG Ferrous Sulfate 27 MG 03/01/2021 12:00:00 AM EDT 1.0 {tablet} active Ferrous Sulfate 27 MG e CW1 ([facility]) Ferrous Sulfate 27 MG Ferrous Sulfate 27 MG 03/01/2021 12:00:00 AM EDT 1.0 {tablet} active Ferrous Sulfate 27 MG e CW1 ([facility]) Ferrous Sulfate 27 MG Ferrous Sulfate 27 MG 03/01/2021 12:00:00 AM EDT 1.0 {tablet} suspended Ferrous Sulfate 27 MG eCW1 ([facility]) Ferrous Sulfate 27 MG Ferrous Sulfate 27 MG 03/01/2021 12:00:00 AM EDT 1.0 {tablet} suspended Ferrous Sulfate 27 MG eCW1 ([facility]) Benzoyl Peroxide 0.05 MG/MG / Clindamycin 0.01 MG/MG T opical Gel Clindamycin Phos-Benzoyl Perox 11/25/2020 12:00:00 AM EST acti ve MEDENT ([facility]) 1-5 % 11/25/2020 12:00:00 AM EST gel 50 APPLY TO FACE AREA TWO TIMES A DAY APPLY TO FACE AREA TWO TIMES A DAY SOLD: 11/28/2020 [facility] Wrist Splint/Cock-Up/Left/Canvas/Medium 11/25/2020 12:00:[address] active MEDENT ([facility]) Wrist Splint/Cock-Up/Right/Canvas/Medium 11/25/2020 12:00:00 AM EST active MEDENT ([facility]) 50-325-40 mg 11/02/2020 12:00:00 AM EST capsule 20 TAKE ONE CAPSULE BY MOUTH EVERY 6 HOURS NEEDED FOR HEADACHE TAKE ONE CAPSULE BY MOUTH EVERY 6 HOURS NEEDED FOR HEADACHE SOLD: 11/02/2020 [facility] Acetaminophen 325 MG / butalbital 50 MG / Caffeine 40 MG Oral Capsule [Esgic] Esgic 50-325-40 MG Esgic 50-325-40 MG 11/02/2020 12:00:00 AM EST 1.0 {capsule_as_needed} active Esgic 50-325 -40 MG eCW1 ([facility]) Acetaminophen 325 MG / butalbital 50 MG / Caffeine 40 MG Oral Capsule [Esgic] Esgic 50-325-40 MG Esgic 50-325-40 MG 11/02/2020 12:00:00 AM EST 1.0 {capsule_as_needed} active Esgic 50-325 -40 MG eCW1 ([facility]) Acetaminophen 325 MG / butalbital 50 MG / Caffeine 40 MG Oral Capsule [Esgic] Esgic 50-325-40 MG Esgic 50-325-40 MG 11/02/2020 12:00:00 AM EST 1.0 {capsule_as_needed} active Esgic 50-325 -40 MG eCW1 ([facility]) Acetaminophen 325 MG / butalbital 50 MG / Caffeine 40 MG Oral Capsule 50-325-40 mg BUTALB/ACETAMINOPHEN/CAFFEINE 11/02/2020 12:00:00 AM EST capsule 2 0 TAKE ONE CAPSULE BY MOUTH EVERY 6 HOURS NEEDED FOR HEADACHE TAKE ONE CAPSULE BY MOUTH EVERY 6 HOURS NEEDED FOR HEADACHE SOLD: 03/20/2021 [facility] Acetaminophen 325 MG / butalbital 50 MG / Caffeine 40 MG Oral Capsule [Esgic] Esgic 50-325-40 MG Esgic 50-325-40 MG 11/02/2020 12:00:00 AM EST 1.0 {capsule_as_needed} active Esgic 50-325 -40 MG eCW1 ([facility]) Acetaminophen 325 MG / butalbital 50 MG / Caffeine 40 MG Oral Capsule [Esgic] Esgic 50-325-40 MG Esgic 50-325-40 MG 11/02/2020 12:00:00 AM EST 1.0 {capsule_as_needed} active Esgic 50-325 -40 MG eCW1 ([facility]) Acetaminophen 325 MG / butalbital 50 MG / Caffeine 40 MG Oral Capsule [Esgic] Esgic 50-325-40 MG Esgic 50-325-40 MG 11/02/2020 12:00:00 AM EST 1.0 {capsule_as_needed} active Esgic 50-325 -40 MG eCW1 ([facility]) Acetaminophen 325 MG / butalbital 50 MG / Caffeine 40 MG Oral Capsule [Esgic] Esgic 50-325-40 MG Esgic 50-325-40 MG 11/02/2020 12:00:00 AM EST 1.0 {capsule_as_needed} active Esgic 50-325 -40 MG eCW1 ([facility]) Acetaminophen 325 MG / butalbital 50 MG / Caffeine 40 MG Oral Capsule [Esgic] Esgic 50-325-40 MG Esgic 50-325-40 MG 11/02/2020 12:00:00 AM EST 1.0 {capsule_as_needed} active Esgic 50-325 -40 MG eCW1 ([facility]) Acetaminophen 325 MG / butalbital 50 MG / Caffeine 40 MG Oral Capsule [Esgic] Esgic 50-325-40 MG Esgic 50-325-40 MG 11/02/2020 12:00:00 AM EST 1.0 {capsule_as_needed} active Esgic 50-325 -40 MG eCW1 ([facility]) Acetaminophen 325 MG / butalbital 50 MG / Caffeine 40 MG Oral Capsule [Esgic] Esgic 50-325-40 MG Esgic 50-325-40 MG 11/02/2020 12:00:00 AM EST 1.0 {capsule_as_needed} active Esgic 50-325 -40 MG eCW1 ([facility]) Acetaminophen 325 MG / butalbital 50 MG / Caffeine 40 MG Oral Capsule [Esgic] Esgic 50-325-40 MG Esgic 50-325-40 MG 11/02/2020 12:00:00 AM EST 1.0 {capsule_as_needed} active Esgic 50-325 -40 MG eCW1 ([facility]) Acetaminophen 325 MG / butalbital 50 MG / Caffeine 40 MG Oral Capsule [Esgic] Esgic 50-325-40 MG Esgic 50-325-40 MG 11/02/2020 12:00:00 AM EST 1.0 {capsule_as_needed} active Esgic 50-325 -40 MG eCW1 ([facility]) Acetaminophen 325 MG / butalbital 50 MG / Caffeine 40 MG Oral Capsule [Esgic] Esgic 50-325-40 MG Esgic 50-325-40 MG 11/02/2020 12:00:00 AM EST 1.0 {capsule_as_needed} active Esgic 50-325 -40 MG eCW1 ([facility]) Acetaminophen 325 MG / butalbital 50 MG / Caffeine 40 MG Oral Capsule [Esgic] Esgic 50-325-40 MG Esgic 50-325-40 MG 11/02/2020 12:00:00 AM EST 1.0 {capsule_as_needed} active Esgic 50-325 -40 MG eCW1 ([facility]) Acetaminophen 325 MG / butalbital 50 MG / Caffeine 40 MG Oral Capsule [Esgic] Esgic 50-325-40 MG Esgic 50-325-40 MG 11/02/2020 12:00:00 AM EST 1.0 {capsule_as_needed} active Esgic 50-325 -40 MG eCW1 ([facility]) Acetaminophen 325 MG / butalbital 50 MG / Caffeine 40 MG Oral Capsule [Esgic] Esgic 50-325-40 MG Esgic 50-325-40 MG 11/02/2020 12:00:00 AM EST 1.0 {capsule_as_needed} active Esgic 50-325 -40 MG eCW1 ([facility]) Acetaminophen 325 MG / butalbital 50 MG / Caffeine 40 MG Oral Capsule [Esgic] Esgic 50-325-40 MG Esgic 50-325-40 MG 11/02/2020 12:00:00 AM EST 1.0 {capsule_as_needed} active Esgic 50-325 -40 MG eCW1 ([facility]) Insurance Providers Payer name Policy type / Coverage type Policy ID Covered constitution party ID Covered constitution party's relationship to mascorro Policy [place] Plan Information SELF PAY ONLY [id number] SP [id number] BS [place] [id number] SP [id number] BC BS [place] 423/923 [id number] SP [id number] BC BS [place] 423/923 [id number] SP [id number] [place]BS [place] PPO 302/307 [id number] SP [id number] BC BS [place] 423/923 [id number] SP [id number] BCBS [place] 160/660 [id number] SP [id number] [place]BS [place] PPO 302/307 [id number] SP [id number] BCBS [place] 160/660 [id number] SP [id number] [employer] BCBS Medigap Part B [id number] Self [id number] [employer] BCBS Health Maintenance Organization (HMO) [id number] Self [id number] BCBS [facility] 160/660 [id number] SP [id number] [facility] [place] 160/660 [id number] SP [id number] ANSI-Commercial [id number] ANSI-Commercial [id number] BS [place] 423/923 [id number] SP [id number] BS [place] Commercial [id number] Self [id number] [employer] BCBS B [id number] S [id number] [employer] NO FAULT O [id number] S [id number] BC BS [place] 423/923 B [id number] S [id number] BS [place] [employer] [id number] Self [id number] SELF PAY ONLY [employer] NO FAULT [id number] SP [id number] [employer] BCBS Health Maintenance Organization (HMO) [id number] Self [id number] PGBA [place] [id number] FA2 [id number] [facility] [id number] SP U [id number] N REGIONAL CLAIMS [place] -O/P [id number] 19 [id number] [facility] [id number] SP [id number] BCBS [place] PPO 302/307 [id number] SP [id number] ANSI-Commercial [id number] [employer] BCBS Medigap Part B [id number] Self [id number] [employer] BS Health Maintenance Organization (HMO) [id number] Self [id number] [employer] BCBS Medigap Part B [id number] Self [id number] [employer] BS Health Maintenance Organization (HMO) [id number] Self [id number] ANSI-Commercial [id number] Problems, Conditions, and Diagnoses Code Display Name Description Problem Type Effective Dates Data Source(s) F41.1 Generalized anxiety disorder Generalized anxiety disor riley Problem 07/07/2021 12:00:00 AM EDT [facility] ([facility]) F43.12 Posttraumatic stress disorder Posttraumatic stress dis order Problem 07/07/2021 12:00:00 AM EDT MEDENT ([facility]) O99.213 Obesity complicating , third tr imester Obesity complicating in third trimester Problem 03/14/2021 12:00:00 AM EDT eCW1 ([facility]) O99.019 Anemia in mother complicating , childbirth AND/OR puerperium Anemia affecting Problem 03/01/2021 12:00:00 AM EDT eCW1 ( [facility]) O99.212 Maternal obesity complicatin g , childbirth and the puerperium, antepartum Obesity complicating in second trimester Problem 01/31/2021 12:00:00 AM EDT eCW1 ([facility]) Z3A.11 Gestation period, 11 weeks 11 weeks gestation of pregn nahomi Problem 11/02/2020 12:00:00 AM EST eCW1 ([facility]) Z34.80 care Supervision of other normal Ramesh maki 10/03/2020 12:00:00 AM EST eCW1 ([facility]) Surgeries/Procedures Procedure Description Date Indications Data Source(s) OFFICE OUTPATIENT VISIT 25 MINUTES 07/07/2021 12:00:00 AM EDT MEDENT ([facility]) TDAP VACCINE 7/> YR IM 03/14/2021 12:00:00 AM EDT eCW1 ([facility]) Results ID Date Data Source WWBC OBS FOLLOW UP OR REPEAT 04/27/2021 12:00:00 AM EDT eCW1 ([facility]) Name Value Range Interpretation Code Description Data Shanna rce(s) Supporting Document(s) WWBC OBS FOLLOW UP OR REPEAT e CW1 ([facility]) ID Date Data Source WWBC OBS COMPLETE US 12/23/2020 12:00:00 AM EST eCW1 ([facility]) Name Value Range Interpretation Code Description Data Shanna rce(s) Supporting Document(s) [employer] OBS COMPLETE US eCW1 ([facility] ID Date Data Source HBSAG 10/10/2020 12:00:00 AM EST eCW1 ([facility]) Name Value Range Interpretation Code Description Data Shanna rce(s) Supporting Document(s) NEGATIVE NEGATIVE eCW1 ([facility]) ID Date Data Source URINE CULTURE 10/10/2020 12:00:00 AM EST eCW1 ([facility]) Name Value Range Interpretation Code Description Data Shanna rce(s) Supporting Document(s) eCW1 ([facility]) ID Date Data Source RUBELLA IMMUNE STATUS IgG 10/10/2020 12:00:00 AM EST eCW1 ([facility]) Name Value Range Interpretation Code Description Data Shanna rce(s) Supporting Document(s) IMMUNE IMMUNE eCW1 ([facility]) ID Date Data Source SYPHILIS ANTIBODY (RPR SCREEN) 10/10/2020 12:00:00 AM EST eC W1 ([facility]) Name Value Range Interpretation Code Description Data Shanna rce(s) Supporting Document(s) NONREACTIVE NONREACTIVE eCW1 ([facility]) ID Date Data Source [id number] 10/10/2020 12:00:00 AM EST eCW1 ([facility]) Name Value Range Interpretation Code Description Data Shanna rce(s) Supporting Document(s) eCW1 ([facility]) ID Date Data Source HEPATITIS C ANTIBODY INDEX 10/10/2020 12:00:00 AM EST eCW1 ( [facility]) Name Value Range Interpretation Code Description Data Shanna rce(s) Supporting Document(s) 0.1 <0.8 eCW1 ([facility]) ID Date Data Source CBC - Complete Blood Count 10/10/2020 12:00:00 AM EST eCW1 ( [facility]) Name Value Range Interpretation Code Description Data Shanna rce(s) Supporting Document(s) 4.48 4.00-5.40 eCW1 ([facility]) 13.7 12.0-15.5 eCW1 ([facility]) 14.4 4.0-10.0 eCW1 ([facility]) 12.3 11.5-14.5 eCW1 ([facility]) 40.7 36.0-47.0 eCW1 ([facility]) 33.7 32.0-36.5 eCW1 ([facility]) 30.6 27.0-33.0 eCW1 ([facility]) 90.8 80.0-96.0 eCW1 ([facility]) 238 150-450 eCW1 ([facility]) ID Date Data Source Type and Screen Prenatal1 10/10/2020 12:00:00 AM EST eCW1 ([facility]) Name Value Range Interpretation Code Description Data Shanna rce(s) Supporting Document(s) NEGATIVE eCW1 ([facility]) Procedure Social History Code Duration Value Status Description Data Source(s ) Smoking 05/15/2021 12:00:00 AM EDT Former Smoker completed Former Smoker eCW1 ([facility]) Smoking 05/15/2021 12:00:00 AM EDT Former Smoker completed Former Smoker eCW1 ([facility]) Smoking 05/08/2021 12:00:00 AM EDT Former Smoker completed Former Smoker eCW1 ([facility]) Smoking 05/02/2021 12:00:00 AM EDT Former Smoker completed Former Smoker eCW1 ([facility]) Smoking 04/21/2021 12:00:00 AM EDT Former Smoker completed Former Smoker eCW1 ([facility]) Smoking 04/21/2021 12:00:00 AM EDT Former Smoker completed Former Smoker eCW1 ([facility]) Smoking 04/10/2021 12:00:00 AM EDT Former Smoker completed Former Smoker eCW1 ([facility]) Smoking 03/28/2021 12:00:00 AM EDT Former Smoker completed Former Smoker eCW1 ([facility]) Smoking 03/14/2021 12:00:00 AM EDT Former Smoker completed Former Smoker eCW1 ([facility]) Smoking 02/28/2021 12:00:00 AM EDT Former Smoker completed Former Smoker eCW1 ([facility]) Smoking 02/28/2021 12:00:00 AM EDT Former Smoker completed Former Smoker eCW1 ([facility]) Smoking 02/28/2021 12:00:00 AM EDT Former Smoker completed Former Smoker eCW1 ([facility]) Smoking 02/28/2021 12:00:00 AM EDT Former Smoker completed Former Smoker eCW1 ([facility]) Smoking 01/27/2021 12:00:00 AM EDT Former Smoker completed Former Smoker eCW1 ([facility]) Smoking 12/29/2020 12:00:00 AM EST Former Smoker completed Former Smoker eCW1 ([facility]) Smoking 11/30/2020 12:00:00 AM EST Former Smoker completed Former Smoker eCW1 ([facility]) Smoking 10/31/2020 12:00:00 AM EST Former Smoker completed Former Smoker eCW1 ([facility]) Smoking 10/17/2020 12:00:00 AM EST Former Smoker completed Former Smoker eCW1 ([facility]) Smoking 10/06/2020 12:00:00 AM EST Former Smoker completed Former Smoker eCW1 ([facility]) Vital Signs ID Date Data Source UNK Name Value Range Interpretation Code Description Data Source(s) [place] body weight 115 [lb_av] 115 [lb_av] MEDEN T ([facility]) Systolic blood pressure 118 mm[Hg] 118 mm[Hg] M EDENT ([facility]) Diastolic blood pressure 78 mm[Hg] 78 mm[Hg] MEDENT ([facility]) Body height 63.2 [in_i] 63.2 [in_i] MEDENT ([facility]) 5'3.20" Body weight 190.25 [lb_av] 190.25 [lb_av] MEDEN T ([facility]) Body mass index (BMI) [Ratio] 33.5 kg/m2 33.5 k g/m2 [facility] ([facility]) Heart rate 77 /min 77 /min MEDENT ([facility]) Respiratory rate 18 /min 18 /min [facility] ( [facility]) Body temperature 98.4 [degF] 98.4 [degF] MEDENT ([facility]) Oxygen saturation in Arterial blood by Pulse oximetry 99 % 99 % MEDENT ([facility]) Body weight 213.2 [lb_av] 213.2 [lb_av] eCW1 ([facility]) Body height 63.75 [in_i] 63.75 [in_i] eCW1 ([facility]) Body mass index (BMI) [Ratio] 36.88 kg/m2 36.88 kg/m2 eCW1 ([facility]) Systolic blood pressure 118 mm[Hg] 118 mm[Hg] e CW1 ([facility]) Diastolic blood pressure 72 mm[Hg] 72 mm[Hg] eCW1 ([facility]) Body weight 214 [lb_av] 214 [lb_av] eCW1 ([facility]) Body weight 97.07 kg 97.07 kg eCW1 ([facility]) Body height 63.75 [in_i] 63.75 [in_i] eCW1 ([facility]) Body mass index (BMI) [Ratio] 37.022 kg/m2 37.0 22 kg/m2 eCW1 ([facility]) Systolic blood pressure 122 mm[Hg] 122 mm[Hg] e CW1 ([facility]) Diastolic blood pressure 76 mm[Hg] 76 mm[Hg] eCW1 ([facility]) Body weight 213.6 [lb_av] 213.6 [lb_av] eCW1 ([facility]) Body weight 96.89 kg 96.89 kg eCW1 ([facility]) Body height 63.75 [in_i] 63.75 [in_i] eCW1 ([facility]) Body mass index (BMI) [Ratio] 36.952 kg/m2 36.9 52 kg/m2 eCW1 ([facility]) Systolic blood pressure 108 mm[Hg] 108 mm[Hg] e CW1 ([facility]) Diastolic blood pressure 62 mm[Hg] 62 mm[Hg] eCW1 ([facility]) Body weight 212.2 [lb_av] 212.2 [lb_av] eCW1 ([facility]) Body weight 96.25 kg 96.25 kg eCW1 ([facility]) Body height 63.75 [in_i] 63.75 [in_i] eCW1 ([facility]) Body mass index (BMI) [Ratio] 36.71 kg/m2 36.71 kg/m2 eCW1 ([facility]) Systolic blood pressure 118 mm[Hg] 118 mm[Hg] e CW1 ([facility]) Diastolic blood pressure 74 mm[Hg] 74 mm[Hg] eCW1 ([facility]) Body weight 206.6 [lb_av] 206.6 [lb_av] eCW1 ([facility]) Body weight 93.71 kg 93.71 kg eCW1 ([facility]) Body height 63.75 [in_i] 63.75 [in_i] eCW1 ([facility]) Body mass index (BMI) [Ratio] 35.741 kg/m2 35.7 41 kg/m2 eCW1 ([facility]) Systolic blood pressure 124 mm[Hg] 124 mm[Hg] e CW1 ([facility]) Diastolic blood pressure 72 mm[Hg] 72 mm[Hg] eCW1 ([facility]) Body weight 203.2 [lb_av] 203.2 [lb_av] eCW1 ([facility]) Body weight 92.17 kg 92.17 kg eCW1 ([facility]) Body height 63.75 [in_i] 63.75 [in_i] eCW1 ([facility]) Body mass index (BMI) [Ratio] 35.153 kg/m2 35.1 53 kg/m2 eCW1 ([facility]) Systolic blood pressure 112 mm[Hg] 112 mm[Hg] e CW1 ([facility]) Diastolic blood pressure 64 mm[Hg] 64 mm[Hg] eCW1 ([facility]) Body weight 206 [lb_av] 206 [lb_av] eCW1 ([facility]) Body weight 93.44 kg 93.44 kg eCW1 ([facility]) Body height 63.75 [in_i] 63.75 [in_i] eCW1 ([facility]) Body mass index (BMI) [Ratio] 35.638 kg/m2 35.6 38 kg/m2 eCW1 ([facility]) Systolic blood pressure 120 mm[Hg] 120 mm[Hg] e CW1 ([facility]) Diastolic blood pressure 50 mm[Hg] 50 mm[Hg] eCW1 ([facility]) Body weight 205.4 [lb_av] 205.4 [lb_av] eCW1 ([facility]) Body weight 93.17 kg 93.17 kg eCW1 ([facility]) Body height 63.75 [in_i] 63.75 [in_i] eCW1 ([facility]) Body mass index (BMI) [Ratio] 35.534 kg/m2 35.5 34 kg/m2 eCW1 ([facility]) Systolic blood pressure 110 mm[Hg] 110 mm[Hg] e CW1 ([facility]) Diastolic blood pressure 82 mm[Hg] 82 mm[Hg] eCW1 ([facility]) Body weight 200.4 [lb_av] 200.4 [lb_av] eCW1 ([facility]) Body weight 90.9 kg 90.9 kg eCW1 ([facility]) Body height 63.75 [in_i] 63.75 [in_i] eCW1 ([facility]) Body mass index (BMI) [Ratio] 34.669 kg/m2 34.6 69 kg/m2 eCW1 ([facility]) Systolic blood pressure 118 mm[Hg] 118 mm[Hg] e CW1 ([facility]) Diastolic blood pressure 70 mm[Hg] 70 mm[Hg] eCW1 ([facility]) Body weight 197.6 [lb_av] 197.6 [lb_av] eCW1 ([facility]) Body weight 89.63 kg 89.63 kg eCW1 ([facility]) Body height 63.75 [in_i] 63.75 [in_i] eCW1 ([facility]) Body mass index (BMI) [Ratio] 34.185 kg/m2 34.1 85 kg/m2 eCW1 ([facility]) Systolic blood pressure 120 mm[Hg] 120 mm[Hg] e CW1 ([facility]) Diastolic blood pressure 76 mm[Hg] 76 mm[Hg] eCW1 ([facility]) Body weight 193 [lb_av] 193 [lb_av] eCW1 ([facility]) Body height 63.75 [in_i] 63.75 [in_i] eCW1 ([facility]) Body mass index (BMI) [Ratio] 33.389 kg/m2 33.3 89 kg/m2 eCW1 ([facility]) Systolic blood pressure 118 mm[Hg] 118 mm[Hg] e CW1 ([facility]) Diastolic blood pressure 64 mm[Hg] 64 mm[Hg] eCW1 ([facility]) Systolic blood pressure 122 mm[Hg] 122 mm[Hg] M EDENT ([facility]) Diastolic blood pressure 76 mm[Hg] 76 mm[Hg] MEDENT ([facility]) Body mass index (BMI) [Ratio] 33.3 kg/m2 33.3 k g/m2 [facility] ([facility]) Body temperature 98.9 [degF] 98.9 [degF] MEDENT ([facility]) Oxygen saturation in Arterial blood by Pulse oximetry 99 % 99 % MEDENT ([facility]) Body height 63.2 [in_i] 63.2 [in_i] MEDENT ([facility]) 5'3.20" Body weight 189.00 [lb_av] 189.00 [lb_av] MEDEN T ([facility]) Heart rate 101 /min 101 /min MEDENT ([facility]) Respiratory rate 18 /min 18 /min MED[facility] ( [facility]) [place] body weight 115 [lb_av] 115 [lb_av] MEDEN T ([facility]) Body weight 186 [lb_av] 186 [lb_av] eCW1 ([facility]) Systolic blood pressure 120 mm[Hg] 120 mm[Hg] e CW1 ([facility]) Diastolic blood pressure 80 mm[Hg] 80 mm[Hg] eCW1 ([facility]) Body weight 186.8 [lb_av] 186.8 [lb_av] eCW1 ([facility]) Body weight 84.73 kg 84.73 kg eCW1 ([facility]) Body height 63.75 [in_i] 63.75 [in_i] eCW1 ([facility]) Body mass index (BMI) [Ratio] 32.316 kg/m2 32.3 16 kg/m2 eCW1 ([facility]) Systolic blood pressure 122 mm[Hg] 122 mm[Hg] e CW1 ([facility]) Diastolic blood pressure 70 mm[Hg] 70 mm[Hg] eCW1 ([facility]) Body weight 186.2 [lb_av] 186.2 [lb_av] eCW1 ([facility]) Body weight 84.46 kg 84.46 kg eCW1 ([facility]) Body height 63.75 [in_i] 63.75 [in_i] eCW1 ([facility]) Body mass index (BMI) [Ratio] 32.212 kg/m2 32.2 12 kg/m2 eCW1 ([facility]) Systolic blood pressure 114 mm[Hg] 114 mm[Hg] e CW1 ([facility]) Diastolic blood pressure 70 mm[Hg] 70 mm[Hg] eCW1 ([facility]) Patient Treatment Plan of Care Planned Activity Planned Date Details Description Data Source (s) ferrous sulfate 325 MG Oral Tablet 03/07/2021 12:00:00 AM EDT eCW1 ([facility]) ferrous sulfate 325 MG Oral Tablet 03/07/2021 12:00:00 AM EDT eCW1 ([facility]) Ferrous Sulfate 27 MG 03/01/2021 12:00:00 AM EDT eCW1 ([facility]) Ferrous Sulfate 27 MG 03/01/2021 12:00:00 AM EDT eCW1 ([facility]) Ferrous Sulfate 27 MG 03/01/2021 12:00:00 AM EDT eCW1 ([facility]) Ferrous Sulfate 27 MG 03/01/2021 12:00:00 AM EDT eCW1 ([facility]) Acetaminophen 325 MG / butalbital 50 MG / Caffeine 40 MG Oral Capsule [Esgic] 11/02/2020 12:00:00 AM EST eCW1 ([facility])
--- NOTE | 2021-08-24 09:11 | REP ---
INDICATION: fall COMPARISON: None. TECHNIQUE: Four views right ankle. FINDINGS: There is no evidence of acute fracture, dislocation, or intrinsic bone disease.The ankle mortise is anatomic. There is mild inferior calcaneal spurring. IMPRESSION: No fracture or dislocation. <Electronically signed by Tk [place] > 08/24/21 0924
[2021-08-24] MEDS ORDERED: ACETAMINOPHEN 500 MG TAB PO ONE (09:15)
--- NOTE | 2021-08-24 09:38 | REP ---
INDICATION: R 3-5th metatarsal pain/TTP COMPARISON: None. TECHNIQUE: Four views right foot. FINDINGS: There is no evidence of acute fracture, dislocation, or intrinsic bone disease.There is mild inferior calcaneal spurring. IMPRESSION: No fracture or dislocation. <Electronically signed by Tk [place] > 08/24/21 0949
--- OUTSIDE RECORDS SUMMARY | 2021-08-24 10:01 | CCD ---
Author Author [facility] Organization [facility] Address Unknown Phone Unavailable Care Team Providers Care Control Operator Name Role Phone Юлия Trammell PA Unavailable [...] is protected by Article 27-F of the [facility] Public Health law. If you continue you may have access to information: Regarding HIV / AIDS; Provided by facilities licensed or operated by the [facility] Office of Mental Health; or Provided by the [facility] Office for People With Developmental Disabilities. If such information is present, then the following [facility] mandated warning applies: This information has been [...] law may result in a fine or usp sentence or both. A general authorization for the release of medical or other information is NOT sufficient authorization for further disc losure. Family History Family Member Name Family Member Gender Family Member Status Date o f Status Description Data Source(s) Unknown Unknown Problem MEDENT ([facility]) Unknown Unknown Problem MEDENT ([facility]) Encounters Encounter Providers Location Date Indications Data Source(s ) Outpatient Attender: Amadou ARREAGA [facility] 07/07/2021 09:30:00 AM EDT [facility] ([facility]) [place] [address] [facility] [address] 05/26/2021 12:00:00 AM EDT eCW1 ([facility]) (WC ESTOB) [facility] [address] [place] [address] 05/17/2021 12:00:00 AM EDT eCW1 ([facility]) (WC ESTOB) [facility] [address] [place] [address] 05/10/2021 12:00:00 AM EDT eCW1 ([facility]) (WC ESTOB) [facility] [address] [place] [address] 05/03/2021 12:00:00 AM EDT eCW1 ([facility]) ( ESTOB) [facility] [address] [place] [address] 04/26/2021 12:00:00 AM EDT eCW1 ([facility]) (WC ESTOB) [facility] [address] [place] [address] 04/11/2021 12:00:00 AM EDT eCW1 ([facility]) (WC ESTOB) [facility] [address] [place] [address] 03/29/2021 12:00:00 AM EDT eCW1 ([facility]) (WC ESTOB) [facility] [address] [place] [address] 03/14/2021 12:00:00 AM EDT eCW1 ([facility]) [place] [address] [facility] [address] 03/10/2021 12:00:00 AM EDT eCW1 ([facility]) [place] [address] [facility] [address] 03/06/2021 12:00:00 AM EDT eCW1 ([facility]) [place] [address] [facility] [address] 03/01/2021 12:00:00 AM EDT eCW1 ([facility]) (WC ESTOB) [facility] [address] [place] [address] 02/28/2021 12:00:00 AM EDT eCW1 ([facility]) [place] [address] [facility] [address] 02/03/2021 12:00:00 AM EDT eCW1 ([facility]) (WC ESTOB) [facility] Est [facility] [address] [place] [address] 01/31/2021 12:00:00 AM EDT eCW1 ([facility]) ( ESTOB) [facility] Est OB [address] [place] [address] 01/03/2021 12:00:00 AM EST eCW1 ([facility]) ( ESTOB) [facility] Est OB [address] [place] [address] 11/30/2020 12:00:00 AM EST eCW1 ([facility]) Outpatient Attender: Amadou [facility]REAGA [facility] 11/25/2020 10:00:00 AM EST MEDENT ([facility]) ( ESTOB) [facility] Est OB [address] [place] [address] 11/02/2020 12:00:00 AM EST eCW1 ([facility]) ( ESTOB) [facility] Est OB [address] [place] [address] 10/18/2020 12:00:00 AM EST eCW1 ([facility]) ( NEWOB) WCenter New OB Visit [address] [place] [address] 10/06/2020 12:00:00 AM EST eCW1 ([facility]) Immunizations Vaccine Date Status Description Data Source(s) COVID-19 VACCINE Pfizer 07/21/2021 12:00:00 AM EDT completed [facility] Vaccine Series Complete: YESThis Data wa s Submitted to [facility] Via [facility]. COVID-19 VACCINE Pfizer 06/30/2021 12:00:00 AM EDT completed [facility] Vaccine Series Complete: NOThis Data was Submitted to [facility] Via [employer]. Tdap 03/14/2021 03:44:00 PM EDT completed e CW1 ([facility]) Tdap 03/14/2021 03:44:00 PM EDT completed e CW1 ([facility]) Tdap 03/14/2021 03:44:00 PM EDT completed e CW1 ([facility]) Tdap 03/14/2021 03:44:00 PM EDT completed e CW1 ([facility]) Tdap 03/14/2021 03:44:00 PM EDT completed e CW1 ([facility]) Tdap 03/14/2021 03:44:00 PM EDT completed e CW1 ([facility]) Tdap 03/14/2021 03:44:00 PM EDT completed e CW1 ([facility]) Tdap 03/14/2021 03:44:00 PM EDT completed e CW1 ([facility]) Tdap 03/14/2021 03:44:00 PM EDT completed e CW1 ([facility]) Medications Medication Brand Name Start Date Product Form Dose Route Admi nistrative Instructions Pharmacy Instructions Status Indications Reaction Description Data Source(s) Cephalexin 500 MG Oral Capsule Cephalexin 07/07/2021 12:00:00 AM EDT ORAL active MEDENT ([facility]) Benzoyl Peroxide 0.05 MG/MG / Erythromycin 0.03 MG/MG Topical Gel Benzoyl Peroxide-Erythromycin 07/07/2021 12:00:00 AM EDT a ctive MEDENT ([facility]) Benzoyl Peroxide 0.05 MG/MG / Erythromycin 0.03 [...] Ferrous Sulfate 325 (65 Fe) MG eCW1 ([facility]) ferrous sulfate 325 MG Oral Tablet Ferrous Sulfate 325 (65 Fe) MG Ferrous Sulfate 325 (65 Fe) MG 03/07/2021 12:00:00 AM EDT 1.0 {tablet} active Ferrous Sulfate 325 (65 Fe) MG eCW1 ([facility]) ferrous sulfate 325 MG Oral Tablet Ferrous Sulfate 325 (65 Fe) MG Ferrous Sulfate 325 (65 Fe) MG 03/07/2021 12:00:00 AM EDT 1.0 {tablet} active Ferrous Sulfate 325 (65 Fe) MG eCW1 ([facility]) ferrous sulfate 325 MG Oral Tablet Ferrous Sulfate 325 (65 Fe) MG Ferrous Sulfate 325 (65 Fe) MG 03/07/2021 12:00:00 AM EDT 1.0 {tablet} active Ferrous Sulfate 325 (65 Fe) MG eCW1 ([facility]) ferrous sulfate 325 MG Oral Tablet Ferrous Sulfate 325 (65 Fe) MG Ferrous Sulfate 325 (65 Fe) MG 03/07/2021 12:00:00 AM EDT 1.0 {tablet} active Ferrous Sulfate 325 (65 Fe) MG eCW1 ([facility]) ferrous sulfate 325 MG Oral Tablet Ferrous Sulfate 325 (65 Fe) MG Ferrous Sulfate 325 (65 Fe) MG 03/07/2021 12:00:00 AM EDT 1.0 {tablet} active Ferrous Sulfate 325 (65 Fe) MG eCW1 ([facility]) ferrous sulfate 325 MG Oral Tablet Ferrous Sulfate 325 (65 Fe) MG Ferrous Sulfate 325 (65 Fe) MG 03/07/2021 12:00:00 AM EDT 1.0 {tablet} active Ferrous Sulfate 325 (65 Fe) MG eCW1 ([facility]) 325 mg (65 mg iron) 03/07/2021 12:00:00 AM EDT tablet 90 TAKE ONE TABLET BY MOUTH EVERY DAY TAKE ONE TABLET BY MOUTH EVERY DAY SOLD: 03/09/2021 [facility] ferrous sulfate 325 MG Oral Tablet Ferrous Sulfate 325 (65 Fe) MG Ferrous Sulfate 325 (65 Fe) MG 03/07/2021 12:00:00 AM EDT 1.0 {tablet} active Ferrous Sulfate 325 (65 Fe) MG eCW1 ([facility]) ferrous sulfate 325 MG Oral Tablet Ferrous Sulfate 325 (65 Fe) MG Ferrous Sulfate 325 (65 Fe) MG 03/07/2021 12:00:00 AM EDT 1.0 {tablet} active Ferrous Sulfate 325 (65 Fe) MG eCW1 ([facility]) ferrous sulfate 325 MG Oral Tablet Ferrous Sulfate 325 (65 Fe) MG Ferrous Sulfate 325 (65 Fe) MG 03/07/2021 12:00:00 AM EDT 1.0 {tablet} active Ferrous Sulfate 325 (65 Fe) MG eCW1 ([facility]) ferrous sulfate 325 MG Oral Tablet Ferrous Sulfate 325 (65 Fe) MG Ferrous Sulfate 325 (65 Fe) MG 03/07/2021 12:00:00 AM EDT 1.0 {tablet} active Ferrous Sulfate 325 (65 Fe) MG eCW1 ([facility]) Ferrous Sulfate 27 MG Ferrous Sulfate 27 MG 03/01/2021 12:00:00 AM EDT 1.0 {tablet} active Ferrous Sulfate 27 MG e CW1 ([facility]) Ferrous Sulfate 27 MG Ferrous Sulfate 27 MG 03/01/2021 12:00:00 AM EDT 1.0 {tablet} suspended Ferrous Sulfate 27 MG eCW1 ([facility]) Ferrous Sulfate 27 MG Ferrous Sulfate 27 MG 03/01/2021 12:00:00 AM EDT 1.0 {tablet} active Ferrous Sulfate 27 MG e CW1 ([facility]) Ferrous Sulfate 27 MG Ferrous Sulfate 27 MG 03/01/2021 12:00:00 AM EDT 1.0 {tablet} suspended Ferrous Sulfate 27 MG eCW1 ([facility]) Ferrous Sulfate 27 MG Ferrous Sulfate 27 MG 03/01/2021 12:00:00 AM EDT 1.0 {tablet} suspended Ferrous Sulfate 27 MG eCW1 ([facility]) Ferrous Sulfate 27 MG Ferrous Sulfate 27 MG 03/01/2021 12:00:00 AM EDT 1.0 {tablet} active Ferrous Sulfate 27 MG e CW1 ([facility]) Ferrous Sulfate 27 MG Ferrous Sulfate 27 MG 03/01/2021 12:00:00 AM EDT 1.0 {tablet} active Ferrous Sulfate 27 MG e CW1 ([facility]) Ferrous Sulfate 27 MG Ferrous Sulfate 27 MG 03/01/2021 12:00:00 AM EDT 1.0 {tablet} active Ferrous Sulfate 27 MG e CW1 ([facility]) Ferrous Sulfate 27 MG Ferrous Sulfate 27 MG 03/01/2021 12:00:00 AM EDT 1.0 {tablet} active Ferrous Sulfate 27 MG e CW1 ([facility]) Ferrous Sulfate 27 MG Ferrous Sulfate 27 MG 03/01/2021 12:00:00 AM EDT 1.0 {tablet} suspended Ferrous Sulfate 27 MG eCW1 ([facility]) Ferrous Sulfate 27 MG Ferrous Sulfate 27 MG 03/01/2021 12:00:00 AM EDT 1.0 {tablet} suspended Ferrous Sulfate 27 MG eCW1 ([facility]) Benzoyl Peroxide 0.05 MG/MG / Clindamycin 0.01 MG/MG T opical Gel Clindamycin Phos-Benzoyl Perox 11/25/2020 12:00:00 AM EST acti ve MEDENT ([facility]) 1-5 % 11/25/2020 12:00:00 AM EST gel 50 APPLY TO FACE AREA TWO TIMES A DAY APPLY TO FACE AREA TWO TIMES A DAY SOLD: 11/28/2020 [facility] Wrist Splint/Cock-Up/Left/Canvas/Medium 11/25/2020 12:00:[address] active MEDENT ([facility]) Wrist Splint/Cock-Up/Right/Canvas/Medium 11/25/2020 12:00:00 AM EST active MEDENT ([facility]) 50-325-40 mg 11/02/2020 12:00:00 AM EST capsule [...] {capsule_as_needed} active Esgic 50-325 -40 MG eCW1 ([facility]) Acetaminophen 325 MG / butalbital 50 MG / Caffeine 40 MG Oral Capsule [Esgic] Esgic 50-325-40 MG Esgic 50-325-40 MG 11/02/2020 12:00:00 AM EST 1.0 {capsule_as_needed} active Esgic 50-325 -40 MG eCW1 ([facility]) Acetaminophen 325 MG / butalbital 50 MG / Caffeine 40 MG Oral Capsule [Esgic] Esgic 50-325-40 MG Esgic 50-325-40 MG 11/02/2020 12:00:00 AM EST 1.0 {capsule_as_needed} active Esgic 50-325 -40 MG eCW1 ([facility]) Acetaminophen 325 MG / butalbital 50 MG [...] {capsule_as_needed} active Esgic 50-325 -40 MG eCW1 ([facility]) Acetaminophen 325 MG / butalbital 50 MG / Caffeine 40 MG Oral Capsule [Esgic] Esgic 50-325-40 MG Esgic 50-325-40 MG 11/02/2020 12:00:00 AM EST 1.0 {capsule_as_needed} active Esgic 50-325 -40 MG eCW1 ([facility]) Acetaminophen 325 MG / butalbital 50 MG / Caffeine 40 MG Oral Capsule [Esgic] Esgic 50-325-40 MG Esgic 50-325-40 MG 11/02/2020 12:00:00 AM EST 1.0 {capsule_as_needed} active Esgic 50-325 -40 MG eCW1 ([facility]) Acetaminophen 325 MG / butalbital 50 MG / Caffeine 40 MG Oral Capsule [Esgic] Esgic 50-325-40 MG Esgic 50-325-40 MG 11/02/2020 12:00:00 AM EST 1.0 {capsule_as_needed} active Esgic 50-325 -40 MG eCW1 ([facility]) Acetaminophen 325 MG / butalbital 50 MG / Caffeine 40 MG Oral Capsule [Esgic] Esgic 50-325-40 MG Esgic 50-325-40 MG 11/02/2020 12:00:00 AM EST 1.0 {capsule_as_needed} active Esgic 50-325 -40 MG eCW1 ([facility]) Acetaminophen 325 MG / butalbital 50 MG / Caffeine 40 MG Oral Capsule [Esgic] Esgic 50-325-40 MG Esgic 50-325-40 MG 11/02/2020 12:00:00 AM EST 1.0 {capsule_as_needed} active Esgic 50-325 -40 MG eCW1 ([facility]) Acetaminophen 325 MG / butalbital 50 MG / Caffeine 40 MG Oral Capsule [Esgic] Esgic 50-325-40 MG Esgic 50-325-40 MG 11/02/2020 12:00:00 AM EST 1.0 {capsule_as_needed} active Esgic 50-325 -40 MG eCW1 ([facility]) Acetaminophen 325 MG / butalbital 50 MG / Caffeine 40 MG Oral Capsule [Esgic] Esgic 50-325-40 MG Esgic 50-325-40 MG 11/02/2020 12:00:00 AM EST 1.0 {capsule_as_needed} active Esgic 50-325 -40 MG eCW1 ([facility]) Acetaminophen 325 MG / butalbital 50 MG / Caffeine 40 MG Oral Capsule [Esgic] Esgic 50-325-40 MG Esgic 50-325-40 MG 11/02/2020 12:00:00 AM EST 1.0 {capsule_as_needed} active Esgic 50-325 -40 MG eCW1 ([facility]) Acetaminophen 325 MG / butalbital 50 MG / Caffeine 40 MG Oral Capsule [Esgic] Esgic 50-325-40 MG Esgic 50-325-40 MG 11/02/2020 12:00:00 AM EST 1.0 {capsule_as_needed} active Esgic 50-325 -40 MG eCW1 ([facility]) Acetaminophen 325 MG / butalbital 50 MG / Caffeine 40 MG Oral Capsule [Esgic] Esgic 50-325-40 MG Esgic 50-325-40 MG 11/02/2020 12:00:00 AM EST 1.0 {capsule_as_needed} active Esgic 50-325 -40 MG eCW1 ([facility]) Acetaminophen 325 MG / butalbital 50 MG / Caffeine 40 MG Oral Capsule [Esgic] Esgic 50-325-40 MG Esgic 50-325-40 MG 11/02/2020 12:00:00 AM EST 1.0 {capsule_as_needed} active Esgic 50-325 -40 MG eCW1 ([facility]) Acetaminophen 325 MG / butalbital 50 MG / Caffeine 40 MG Oral Capsule [Esgic] Esgic 50-325-40 MG Esgic 50-325-40 MG 11/02/2020 12:00:00 AM EST 1.0 {capsule_as_needed} active Esgic 50-325 -40 MG eCW1 ([facility]) Acetaminophen 325 MG / butalbital 50 MG / Caffeine 40 MG Oral Capsule [Esgic] Esgic 50-325-40 MG Esgic 50-325-40 MG 11/02/2020 12:00:00 AM EST 1.0 {capsule_as_needed} active Esgic 50-325 -40 MG eCW1 ([facility]) Insurance Providers Payer name Policy type / Coverage type Policy ID Covered libertarian ID Covered libertarian's relationship to mascorro Policy M[place] Plan Information SELF PAY ONLY [id number] SP [id number] BC BS [place]IG[place] 423/[id number] SP [id number] BC BS [place] 423/923 [id number] SP [id number] BC BS [place] 423/923 [id number] SP [id number] BCBS [place] PPO 302/307 [id number] SP [id number] BC BS [place] 423/923 [id number] SP [id number] BCBS [place] 160/660 [id number] SP [id number] BCBS [place] PPO 302/307 [id number] SP [id number] BCBS [place] 160/660 [id number] SP [id number] Excell[employer] BCBS Medigap Part B [id number] Self [id number] Excell[employer] BCBS Health Maintenance Organization (HMO) [id number] Self [id number] BCBS [facility] 160/660 [id number] SP [id number] BCBS [facility] 160/660 [id number] SP [id number] ANSI-Commercial [id number] ANSI-Commercial [id number] BC BS [place] 423/923 [id number] SP [id number] BS [place] Commercial [id number] Self [id number] EXCE[employer] BCBS B [id number] S YT [id number] [employer] INS NO FAULT O [id number] S [id number] BC BS [place] 423/923 B [id number] S [id number] BS [place] Commercial [id number] Self [id number] SELF PAY ONLY [employer] NO FAULT [id number] SP [id number] [employer] BCBS Health Maintenance Organization (HMO) [id number] Self [id number] [facility] [place] [facility] [id number] FA2 [id number] [facility] [id number] SP U [id number] N REGIONAL CLAIMS [place] -O/P [id number] 19 [id number] [facility] [id number] SP U [id number] BCBS [place] PPO 302/307 [id number] SP [id number] ANSI-Commercial [id number] [employer] BCBS Medigap Part B [id number] Self [id number] [employer] BS Health Maintenance Organization (HMO) [id number] Self [id number] [employer] BCBS Medigap Part B [id number] Self [id number] [employer] BS Health Maintenance Organization (HMO) [id number] Self [id number] ANSI-Commercial [id number] Problems, Conditions, and Diagnoses Code Display Name Description Problem Type Effective Dates Data Source(s) F41.1 Generalized anxiety disorder Generalized anxiety disor riley Problem 07/07/2021 12:00:00 AM EDT [facility] ([facility]) F43.12 Posttraumatic stress disorder Posttraumatic stress dis order Problem 07/07/2021 12:00:00 AM EDT MEDENT ([facility]) O99.213 Obesity complicating , third tr imester Obesity complicating in third trimester Problem 03/14/2021 12:00:00 AM EDT eCW1 ([facility]) O99.019 Anemia in mother complicating , childbirth AND/OR puerperium Anemia affecting Problem 03/01/2021 12:00:00 AM EDT eCW1 ( [facility]) O99.212 Maternal obesity complicatin g , childbirth and the puerperium, antepartum Obesity complicating in second trimester Problem 01/31/2021 12:00:00 AM EDT eCW1 ([facility]) Z3A.11 Gestation period, 11 weeks 11 weeks gestation of pregn nahomi Problem 11/02/2020 12:00:00 AM EST eCW1 ([facility]) Z34.80 care Supervision of other normal Ramesh maki 10/03/2020 12:00:00 AM EST eCW1 ([facility]) Surgeries/Procedures Procedure Description Date Indications Data Source(s) OFFICE OUTPATIENT VISIT 25 MINUTES 07/07/2021 12:00:00 AM EDT MEDENT ([facility]) TDAP VACCINE 7/> YR IM 03/14/2021 12:00:00 AM EDT eCW1 ([facility]) Results ID Date Data Source WWBC OBS FOLLOW UP OR REPEAT 04/27/2021 12:00:00 AM EDT eCW1 ([facility]) Name Value Range Interpretation Code Description Data Shanna rce(s) Supporting Document(s) WWBC OBS FOLLOW UP OR REPEAT e CW1 ([facility]) ID Date Data Source WWBC OBS COMPLETE US 12/23/2020 12:00:00 AM EST eCW1 ([facility]) Name Value Range Interpretation Code Description Data Shanna rce(s) Supporting Document(s) WWBC OBS COMPLETE US eCW1 ([facility]) ID Date Data Source HBSAG 10/10/2020 12:00:00 AM EST eCW1 ([facility]) Name Value Range Interpretation Code Description Data Shanna rce(s) Supporting Document(s) NEGATIVE NEGATIVE eCW1 ([facility]) ID Date Data Source URINE CULTURE 10/10/2020 12:00:00 AM EST eCW1 ([facility]) Name Value Range Interpretation Code Description Data Shanna rce(s) Supporting Document(s) eCW1 ([facility]) ID Date Data Source RUBELLA IMMUNE STATUS IgG 10/10/2020 12:00:00 AM EST eCW1 ([facility]) Name Value Range Interpretation Code Description Data Shanna rce(s) Supporting Document(s) IMMUNE IMMUNE eCW1 ([facility]) ID Date Data Source SYPHILIS ANTIBODY (RPR SCREEN) 10/10/2020 12:00:00 AM EST eC W1 ([facility]) Name Value Range Interpretation Code Description Data Shanna rce(s) Supporting Document(s) NONREACTIVE NONREACTIVE eCW1 ([facility]) ID Date Data Source [id number] 10/10/2020 12:00:00 AM EST eCW1 ([facility]) Name Value Range Interpretation Code Description Data Shanna rce(s) Supporting Document(s) eCW1 ([facility]) ID Date Data Source HEPATITIS C ANTIBODY INDEX 10/10/2020 12:00:00 AM EST eCW1 ( [facility]) Name Value Range Interpretation Code Description Data Shanna rce(s) Supporting Document(s) 0.1 <0.8 eCW1 ([facility]) ID Date Data Source CBC - Complete Blood Count 10/10/2020 12:00:00 AM EST eCW1 ( [facility]) Name Value Range Interpretation Code Description Data Shanna rce(s) Supporting Document(s) 4.48 4.00-5.40 eCW1 ([facility]) 13.7 12.0-15.5 eCW1 ([facility]) 14.4 4.0-10.0 eCW1 ([facility]) 12.3 11.5-14.5 eCW1 ([facility]) 40.7 36.0-47.0 eCW1 ([facility]) 33.7 32.0-36.5 eCW1 ([facility]) 30.6 27.0-33.0 eCW1 ([facility]) 90.8 80.0-96.0 eCW1 ([facility]) 238 150-450 eCW1 ([facility]) ID Date Data Source Type and Screen Prenatal1 10/10/2020 12:00:00 AM EST eCW1 ([facility]) Name Value Range Interpretation Code Description Data Shanna rce(s) Supporting Document(s) NEGATIVE eCW1 ([facility]) Procedure Social History Code Duration Value Status Description Data Source(s ) Smoking 05/15/2021 12:00:00 AM EDT Former Smoker completed Former Smoker eCW1 ([facility]) Smoking 05/15/2021 12:00:00 AM EDT Former Smoker completed Former Smoker eCW1 ([facility]) Smoking 05/08/2021 12:00:00 AM EDT Former Smoker completed Former Smoker eCW1 ([facility]) Smoking 05/02/2021 12:00:00 AM EDT Former Smoker completed Former Smoker eCW1 ([facility]) Smoking 04/21/2021 12:00:00 AM EDT Former Smoker completed Former Smoker eCW1 ([facility]) Smoking 04/21/2021 12:00:00 AM EDT Former Smoker completed Former Smoker eCW1 ([facility]) Smoking 04/10/2021 12:00:00 AM EDT Former Smoker completed Former Smoker eCW1 ([facility]) Smoking 03/28/2021 12:00:00 AM EDT Former Smoker completed Former Smoker eCW1 ([facility]) Smoking 03/14/2021 12:00:00 AM EDT Former Smoker completed Former Smoker eCW1 ([facility]) Smoking 02/28/2021 12:00:00 AM EDT Former Smoker completed Former Smoker eCW1 ([facility]) Smoking 02/28/2021 12:00:00 AM EDT Former Smoker completed Former Smoker eCW1 ([facility]) Smoking 02/28/2021 12:00:00 AM EDT Former Smoker completed Former Smoker eCW1 ([facility]) Smoking 02/28/2021 12:00:00 AM EDT Former Smoker completed Former Smoker eCW1 ([facility]) Smoking 01/27/2021 12:00:00 AM EDT Former Smoker completed Former Smoker eCW1 ([facility]) Smoking 12/29/2020 12:00:00 AM EST Former Smoker completed Former Smoker eCW1 ([facility]) Smoking 11/30/2020 12:00:00 AM EST Former Smoker completed Former Smoker eCW1 ([facility]) Smoking 10/31/2020 12:00:00 AM EST Former Smoker completed Former Smoker eCW1 ([facility]) Smoking 10/17/2020 12:00:00 AM EST Former Smoker completed Former Smoker eCW1 ([facility]) Smoking 10/06/2020 12:00:00 AM EST Former Smoker completed Former Smoker eCW1 ([facility]) Vital Signs ID Date Data Source UNK Name Value Range Interpretation Code Description Data Source(s) Respiratory rate 18 /min 18 /min [facility] ( [facility]) Systolic blood pressure 118 mm[Hg] 118 mm[Hg] M EDENT ([facility]) Diastolic blood pressure 78 mm[Hg] 78 mm[Hg] [facility] Body height 63.2 [in_i] 63.2 [in_i] MEDENT ([facility]) 5'3.20" Body weight 190.25 [lb_av] 190.25 [lb_av] MEDEN T ([facility]) Body mass index (BMI) [Ratio] 33.5 kg/m2 33.5 k g/m2 MEDENT ([facility]) Heart rate 77 /min 77 /min [facility]) [place] body weight 115 [lb_av] 115 [lb_av] MEDEN T ([facility]) Body temperature 98.4 [degF] 98.4 [degF] MEDENT ([facility]) Oxygen saturation in Arterial blood by Pulse oximetry 99 % 99 % MEDENT ([facility]) Body weight 213.2 [lb_av] 213.2 [lb_av] eCW1 ([facility]) Body height 63.75 [in_i] 63.75 [in_i] eCW1 ([facility]) Body mass index (BMI) [Ratio] 36.88 kg/m2 36.88 kg/m2 eCW1 ([facility]) Systolic blood pressure 118 mm[Hg] 118 mm[Hg] e CW1 ([facility]) Diastolic blood pressure 72 mm[Hg] 72 mm[Hg] eCW1 ([facility]) Body weight 214 [lb_av] 214 [lb_av] eCW1 ([facility]) Body weight 97.07 kg 97.07 kg eCW1 ([facility]) Body height 63.75 [in_i] 63.75 [in_i] eCW1 ([facility]) Body mass index (BMI) [Ratio] 37.022 kg/m2 37.0 22 kg/m2 eCW1 ([facility]) Systolic blood pressure 122 mm[Hg] 122 mm[Hg] e CW1 ([facility]) Diastolic blood pressure 76 mm[Hg] 76 mm[Hg] eCW1 ([facility]) Body weight 213.6 [lb_av] 213.6 [lb_av] eCW1 ([facility]) Body weight 96.89 kg 96.89 kg eCW1 ([facility]) Body height 63.75 [in_i] 63.75 [in_i] eCW1 ([facility]) Body mass index (BMI) [Ratio] 36.952 kg/m2 36.9 52 kg/m2 eCW1 ([facility]) Systolic blood pressure 108 mm[Hg] 108 mm[Hg] e CW1 ([facility]) Diastolic blood pressure 62 mm[Hg] 62 mm[Hg] eCW1 ([facility]) Diastolic blood pressure 74 mm[Hg] 74 mm[Hg] eCW1 ([facility]) Body weight 212.2 [lb_av] 212.2 [lb_av] eCW1 ([facility]) Body weight 96.25 kg 96.25 kg eCW1 ([facility]) Body height 63.75 [in_i] 63.75 [in_i] eCW1 ([facility]) Body mass index (BMI) [Ratio] 36.71 kg/m2 36.71 kg/m2 eCW1 ([facility]) Systolic blood pressure 118 mm[Hg] 118 mm[Hg] e CW1 ([facility]) Body weight 206.6 [lb_av] 206.6 [lb_av] eCW1 ([facility]) Body weight 93.71 kg 93.71 kg eCW1 ([facility]) Body height 63.75 [in_i] 63.75 [in_i] eCW1 ([facility]) Body mass index (BMI) [Ratio] 35.741 kg/m2 35.7 41 kg/m2 eCW1 ([facility]) Systolic blood pressure 124 mm[Hg] 124 mm[Hg] e CW1 ([facility]) Diastolic blood pressure 72 mm[Hg] 72 mm[Hg] eCW1 ([facility]) Body weight 203.2 [lb_av] 203.2 [lb_av] eCW1 ([facility]) Body weight 92.17 kg 92.17 kg eCW1 ([facility]) Body height 63.75 [in_i] 63.75 [in_i] eCW1 ([facility]) Body mass index (BMI) [Ratio] 35.153 kg/m2 35.1 53 kg/m2 eCW1 ([facility]) Systolic blood pressure 112 mm[Hg] 112 mm[Hg] e CW1 ([facility]) Diastolic blood pressure 64 mm[Hg] 64 mm[Hg] eCW1 ([facility]) Body weight 206 [lb_av] 206 [lb_av] eCW1 ([facility]) Body weight 93.44 kg 93.44 kg eCW1 ([facility]) Body height 63.75 [in_i] 63.75 [in_i] eCW1 ([facility]) Body mass index (BMI) [Ratio] 35.638 kg/m2 35.6 38 kg/m2 eCW1 ([facility]) Systolic blood pressure 120 mm[Hg] 120 mm[Hg] e CW1 ([facility]) Diastolic blood pressure 50 mm[Hg] 50 mm[Hg] eCW1 ([facility]) Body weight 205.4 [lb_av] 205.4 [lb_av] eCW1 ([facility]) Body weight 93.17 kg 93.17 kg eCW1 ([facility]) Body height 63.75 [in_i] 63.75 [in_i] eCW1 ([facility]) Body mass index (BMI) [Ratio] 35.534 kg/m2 35.5 34 kg/m2 eCW1 ([facility]) Systolic blood pressure 110 mm[Hg] 110 mm[Hg] e CW1 ([facility]) Diastolic blood pressure 82 mm[Hg] 82 mm[Hg] eCW1 ([facility]) Body weight 200.4 [lb_av] 200.4 [lb_av] eCW1 ([facility]) Body weight 90.9 kg 90.9 kg eCW1 ([facility]) Body height 63.75 [in_i] 63.75 [in_i] eCW1 ([facility]) Body mass index (BMI) [Ratio] 34.669 kg/m2 34.6 69 kg/m2 eCW1 ([facility]) Systolic blood pressure 118 mm[Hg] 118 mm[Hg] e CW1 ([facility]) Diastolic blood pressure 70 mm[Hg] 70 mm[Hg] eCW1 ([facility]) Body weight 197.6 [lb_av] 197.6 [lb_av] eCW1 ([facility]) Body weight 89.63 kg 89.63 kg eCW1 ([facility]) Body height 63.75 [in_i] 63.75 [in_i] eCW1 ([facility]) Body mass index (BMI) [Ratio] 34.185 kg/m2 34.1 85 kg/m2 eCW1 ([facility]) Systolic blood pressure 120 mm[Hg] 120 mm[Hg] e CW1 ([facility]) Diastolic blood pressure 76 mm[Hg] 76 mm[Hg] eCW1 ([facility]) Body mass index (BMI) [Ratio] 33.389 kg/m2 33.3 89 kg/m2 eCW1 ([facility]) Body weight 193 [lb_av] 193 [lb_av] eCW1 ([facility]) Body height 63.75 [in_i] 63.75 [in_i] eCW1 ([facility]) Systolic blood pressure 118 mm[Hg] 118 mm[Hg] e CW1 ([facility]) Diastolic blood pressure 64 mm[Hg] 64 mm[Hg] eCW1 ([facility]) Systolic blood pressure 122 mm[Hg] 122 mm[Hg] M EDENT ([facility]) Body mass index (BMI) [Ratio] 33.3 kg/m2 33.3 k g/m2 MEDENT ([facility]) Body temperature 98.9 [degF] 98.9 [degF] MEDENT ([facility]) Oxygen saturation in Arterial blood by Pulse oximetry 99 % 99 % MEDENT ([facility]) Diastolic blood pressure 76 mm[Hg] 76 mm[Hg] MEDENT ([facility]) Body height 63.2 [in_i] 63.2 [in_i] MEDENT ([facility] 5'3.20" Body weight 189.00 [lb_av] 189.00 [lb_av] MEDEN T ([facility]) Heart rate 101 /min 101 /min MEDENT ([facility]) Respiratory rate 18 /min 18 /min MEDENT ( [facility]) [place] body weight 115 [lb_av] 115 [lb_av] MEDEN T ([facility]) Systolic blood pressure 120 mm[Hg] 120 mm[Hg] e CW1 ([facility]) Body weight 186 [lb_av] 186 [lb_av] eCW1 ([facility]) Diastolic blood pressure 80 mm[Hg] 80 mm[Hg] eCW1 ([facility]) Body weight 186.8 [lb_av] 186.8 [lb_av] eCW1 ([facility]) Body weight 84.73 kg 84.73 kg eCW1 ([facility]) Body height 63.75 [in_i] 63.75 [in_i] eCW1 ([facility]) Body mass index (BMI) [Ratio] 32.316 kg/m2 32.3 16 kg/m2 eCW1 ([facility]) Systolic blood pressure 122 mm[Hg] 122 mm[Hg] e CW1 ([facility]) Diastolic blood pressure 70 mm[Hg] 70 mm[Hg] eCW1 ([facility]) Body weight 186.2 [lb_av] 186.2 [lb_av] eCW1 ([facility]) Body weight 84.46 kg 84.46 kg eCW1 ([facility]) Body height 63.75 [in_i] 63.75 [in_i] eCW1 ([facility]) Body mass index (BMI) [Ratio] 32.212 kg/m2 32.2 12 kg/m2 eCW1 ([facility]) Systolic blood pressure 114 mm[Hg] 114 mm[Hg] e CW1 ([facility]) Diastolic blood pressure 70 mm[Hg] 70 mm[Hg] eCW1 ([facility]) Patient Treatment Plan of Care Planned Activity Planned Date Details Description Data Source (s) ferrous sulfate 325 MG Oral Tablet 03/07/2021 12:00:00 AM EDT eCW1 ([facility]) ferrous sulfate 325 MG Oral Tablet 03/07/2021 12:00:00 AM EDT eCW1 ([facility]) Ferrous Sulfate 27 MG 03/01/2021 12:00:00 AM EDT eCW1 ([facility]) Ferrous Sulfate 27 MG 03/01/2021 12:00:00 AM EDT eCW1 ([facility]) Ferrous Sulfate 27 MG 03/01/2021 12:00:00 AM EDT eCW1 ([facility]) Ferrous Sulfate 27 MG 03/01/2021 12:00:00 AM EDT eCW1 ([facility]) Acetaminophen 325 MG / butalbital 50 MG / Caffeine 40 MG Oral Capsule [[facility]] 11/02/2020 12:00:00 AM EST eCW1 ([facility])
[2021-08-24 10:07] VITALS: BP 123/57
== END 2021-08-24 10:16 | disposition home or self-care (01) ==
LOC: M ED 08:04
DX: S93.401A Sprain of unspecified ligament of right ankle, initial encounter (principal); S93.601A Unspecified sprain of right foot, initial encounter; X50.9XXA Other and unspecified overexertion or strenuous movements or postures, initial encounter; Y92.018 Other place in single-family (private) house as the place of occurrence of the external cause; F41.9 Anxiety disorder, unspecified; Z88.2 Allergy status to sulfonamides; Z88.8 Allergy status to other drugs, medicaments and biological substances; J30.2 Other seasonal allergic rhinitis

== ENCOUNTER → 2021-11-01 | Outpatient (CLI) | payer OTHER ==
[2021-11-01 13:57] LABS: HEMATOCRIT 46.6 % (36.0-47.0); HEMOGLOBIN 15.5 g/dl (12.0-15.5); MEAN CORPUSCULAR HEMOGLOBIN 29.5 pg (27.0-33.0); MEAN CORPUSCULAR HGB CONC 33.3 g/dl (32.0-36.5); MEAN CORPUSCULAR VOLUME 88.6 fl (80.0-96.0); PLATELET COUNT, AUTOMATED 280 10^3/uL (150-450); RED BLOOD COUNT 5.26 10^6/uL (4.00-5.40); WHITE BLOOD COUNT 10.6 10^3/uL (4.0-10.0)
[2021-11-01 14:44] LABS: ALBUMIN 4.2 GM/DL (3.2-5.2); ALT/SGPT 16 U/L (12-78); BILIRUBIN,TOTAL 0.5 MG/DL (0.2-1.0); BLOOD UREA NITROGEN 20 MG/DL (7-18); CALCIUM LEVEL 10.1 MG/DL (8.5-10.1); CARBON DIOXIDE LEVEL 27 MEQ/L (21-32); CHLORIDE LEVEL 106 MEQ/L (98-107); CHOLESTEROL LEVEL 236 MG/DL (<200); CREATININE FOR GFR 0.91 MG/DL (0.55-1.30); FREE T4 0.96 NG/DL (0.76-1.46); GLOMERULAR FILTRATION RATE > 60.0 (>60); GLUCOSE, FASTING 88 MG/DL (70-100); HDL CHOLESTEROL 59 MG/DL (>40); LDL CHOLESTEROL 155 MG/DL (<100); NON-HDL-C 177 MG/DL; POTASSIUM SERUM 5.1 MEQ/L (3.5-5.1); SODIUM LEVEL 139 MEQ/L (136-145); TOTAL PROTEIN 7.8 GM/DL (6.4-8.2); TRIGLYCERIDES LEVEL 110 MG/DL (<150)
[2021-11-01 18:53] LABS: HEMOGLOBIN A1c 4.9 %
[2021-11-02 18:07] LABS: TESTOSTERONE FREE (DIRECT) 3.4 pg/mL (0.0-4.2)
== END ==
LOC: M PLALAB 10:32
PROVIDERS: ATTEND Advanced Practice Midwife
DX: Z01.419 Encounter for gynecological examination (general) (routine) without abnormal findings (principal); R87.610 Atypical squamous cells of undetermined significance on cytologic smear of cervix (ASC-US); R63.5 Abnormal weight gain
CPT/HCPCS: 36415; 80053; 80061; 83036; 84402; 84403; 84439; 84443; 85027; 87624; G0123

== ENCOUNTER → 2021-11-07 | Outpatient (REF) | payer OTHER | LOC: M LAB REF 16:57 | PROVIDERS: ATTEND Family Medicine | DX: J01.90 Acute sinusitis, unspecified (principal) ==

== ENCOUNTER 2021-11-11 10:02 | Emergency (ER) | payer OTHER ==
[~2021-11-11] VITALS: Ht 160 cm; Wt 91.7 kg
[2021-11-11] MEDS ORDERED: ESTA0.25 (10:22)
[2021-11-11] MEDS ORDERED: FLON1SPR NARES (11:21)
[2021-11-11] MEDS ORDERED: AUGM875T28 PO (11:21)
[2021-11-11 11:29] VITALS: BP 138/76
== END 2021-11-11 11:31 | disposition home or self-care (01) ==
LOC: M ED 10:02
DX: J02.9 Acute pharyngitis, unspecified (principal); R52 Pain, unspecified; J32.0 Chronic maxillary sinusitis; U07.1 COVID-19; I47.1 Supraventricular tachycardia; Z88.2 Allergy status to sulfonamides; Z79.3 Long term (current) use of hormonal contraceptives

== ENCOUNTER → 2021-11-21 | Outpatient (REF) | payer OTHER ==
[~2021-11-21] MED LIST changes: +AUGM875T28 PO; +ESTA0.25; +FLON1SPR NARES
== END ==
LOC: M SFHCWAGY 16:41
PROVIDERS: ATTEND Obstetrics & Gynecology
DX: R87.612 Low grade squamous intraepithelial lesion on cytologic smear of cervix (LGSIL) (principal)

== ENCOUNTER → 2022-02-23 | Outpatient (CLI) | payer OTHER ==
[~2022-02-23] MED LIST changes: +ALLE180T33 PO; -ESTA0.25; +ESTA0.25 PO; +VITMTA PO
== END ==
LOC: M LABSMTC 09:37
PROVIDERS: ATTEND Anesthesiology
DX: Z01.812 Encounter for preprocedural laboratory examination (principal); Z20.822 Contact with and (suspected) exposure to COVID-19

== ENCOUNTER 2022-02-28 11:29 | Day surgery (SDC) | payer OTHER ==
[~2022-02-28] VITALS: Ht 160 cm; Wt 85.2 kg
[~2022-02-28 11:29] MED LIST changes: +LIDOCAINE 2% 100MG/5ML SDV (FOR ANES.) As Ordered ONE; +LR 1,000 ML IV ONE; +MIDAZOLAM INJ 2MG/2ML VIAL (J2250 PER 1MG) As Ordered ONE; +ONDANSETRON 4MG/2ML VIAL As Ordered ONE; +dexameTHASONE 4 MG/ML 1ML VIAL (J1100 PER 1MG) As Ordered ONE; +fentaNYL 100 MCG/2 ML INJECTION As Ordered ONE; +propofoL 200 MG/20 ML VIAL As Ordered ONE
[2022-02-28 12:03] LABS: HEMATOCRIT 41.8 % (36.0-47.0); HEMOGLOBIN 14.2 g/dl (12.0-15.5); MEAN CORPUSCULAR HEMOGLOBIN 30.1 pg (27.0-33.0); MEAN CORPUSCULAR VOLUME 88.7 fl (80.0-96.0); PLATELET COUNT, AUTOMATED 256 10^3/uL (150-450); RED BLOOD COUNT 4.71 10^6/uL (4.00-5.40); WHITE BLOOD COUNT 11.3 10^3/uL (4.0-10.0)
[2022-02-28 12:40] LABS: HCG, SERUM QUALITATIVE NEGATIVE (NEGATIVE)
[2022-02-28] MEDS ORDERED: LIDOCAINE W/EPINEPHRINE 1% 20ML VIAL As Ordered ONE (13:17)
[2022-02-28] MEDS ORDERED: SILVER NITRATE APPLICATOR (1 = QTY 10) As Ordered ONE (13:17)
[2022-02-28] MEDS ORDERED: IODINE STRONG SOLN 15 ML BTL As Ordered ONE (13:17)
[2022-02-28] MEDS ORDERED: ACETAMINOPHEN 1000MG 100ML IV BTL (OFIRMEV) (J0131 PER 10MG) As Ordered ONE (13:40)
[2022-02-28] MEDS ORDERED: propofoL 200 MG/20 ML VIAL As Ordered ONE (13:41)
[2022-02-28] MEDS ORDERED: KETOROLAC 60MG 2ML VIAL As Ordered ONE (13:41)
[2022-02-28] MEDS ORDERED: ePHEDrine SULFATE 25 MG/5 ML(5MG/ML) SYRINGE As Ordered ONE (14:21)
[2022-02-28] MEDS ORDERED: ACET-716 PO (14:36)
[2022-02-28 15:00] VITALS: BP 130/73
== END 2022-02-28 15:02 | disposition home or self-care (01) ==
LOC: M SDC 11:29
PROVIDERS: ATTEND Obstetrics & Gynecology
DX: N87.0 Mild cervical dysplasia (principal); R09.81 Nasal congestion; J32.9 Chronic sinusitis, unspecified; Z87.891 Personal history of nicotine dependence; Z79.899 Other long term (current) drug therapy; Z79.3 Long term (current) use of hormonal contraceptives; Z88.2 Allergy status to sulfonamides
CPT/HCPCS: 36415; 57522; 64435; 84703; 85027; 86850; 86900; 86901; 88307; J0131; J1100; J1885; J2250; J2405; J3010

== ENCOUNTER → 2022-03-15 | Outpatient (CLI) | payer OTHER ==
[~2022-03-15] MED LIST changes: +ACET-716 PO; -LIDOCAINE 2% 100MG/5ML SDV (FOR ANES.) As Ordered ONE; -LR 1,000 ML IV ONE; -MIDAZOLAM INJ 2MG/2ML VIAL (J2250 PER 1MG) As Ordered ONE; -ONDANSETRON 4MG/2ML VIAL As Ordered ONE; -dexameTHASONE 4 MG/ML 1ML VIAL (J1100 PER 1MG) As Ordered ONE; -fentaNYL 100 MCG/2 ML INJECTION As Ordered ONE; -propofoL 200 MG/20 ML VIAL As Ordered ONE
== END ==
LOC: M RAD 16:29
PROVIDERS: ATTEND Nurse Practitioner Adult Health
DX: J01.40 Acute pansinusitis, unspecified (principal)

== ENCOUNTER → 2022-05-31 | Outpatient (CLI) | payer OTHER ==
[2022-05-31 11:20] LABS: HEMATOCRIT 42.1 % (36.0-47.0); HEMOGLOBIN 13.9 g/dl (12.0-15.5); MEAN CORPUSCULAR HEMOGLOBIN 30.2 pg (27.0-33.0); MEAN CORPUSCULAR VOLUME 91.5 fl (80.0-96.0); PLATELET COUNT, AUTOMATED 251 10^3/uL (150-450); WHITE BLOOD COUNT 8.6 10^3/uL (4.0-10.0)
[2022-05-31 11:50] LABS: FREE T4 0.98 NG/DL (0.76-1.46)
[2022-05-31 12:12] LABS: ESTRADIOL < 19.0 PG/ML; FOLLICLE STIMULATING HORMONE 5.2 mIU/mL; LUTEINIZING HORMONE 5.2 mIU/mL; PROLACTIN 7.1 NG/ML
[2022-06-01 00:36] LABS: HEMOGLOBIN A1c 4.7 %
== END ==
LOC: M PLALAB 07:58
PROVIDERS: ATTEND Advanced Practice Midwife
DX: N92.1 Excessive and frequent menstruation with irregular cycle (principal)

== ENCOUNTER → 2022-06-01 | Outpatient (CLI) | payer OTHER | LOC: M WHC 11:51 | PROVIDERS: ATTEND Advanced Practice Midwife | DX: N92.1 Excessive and frequent menstruation with irregular cycle (principal); N94.6 Dysmenorrhea, unspecified ==

== ENCOUNTER → 2022-09-08 | Outpatient (CLI) | payer OTHER ==
[2022-09-08 10:33] LABS: BASO % 0.5 % (0.0-1.0); EOS # 0.2 10^3/uL (0.0-0.5); EOS % 1.8 % (0.0-3.0); HEMATOCRIT 43.8 % (36.0-47.0); HEMOGLOBIN 14.9 g/dl (12.0-15.5); LYMPH # 2.5 10^3/uL (1.5-5.0); LYMPH % 29.7 % (24.0-44.0); MEAN CORPUSCULAR HEMOGLOBIN 30.2 pg (27.0-33.0); MEAN CORPUSCULAR VOLUME 88.8 fl (80.0-96.0); MONO # 0.8 10^3/uL (0.0-0.8); MONO % 9.3 % (2.0-8.0); NEUTROPHILS # 4.9 10^3/uL (1.5-8.5); NEUTROPHILS % 58.3 % (36.0-66.0); PLATELET COUNT, AUTOMATED 294 10^3/uL (150-450); RED BLOOD COUNT 4.93 10^6/uL (4.00-5.40); WHITE BLOOD COUNT 8.4 10^3/uL (4.0-10.0)
== END ==
LOC: M LAB 10:08
PROVIDERS: ATTEND Physician Assistant
DX: D84.9 Immunodeficiency, unspecified (principal)

== ENCOUNTER → 2022-11-21 | Outpatient (CLI) | payer OTHER ==
[~2022-11-21] MED LIST changes: +DIPH-435 PO; -DIPH25CA32 PO
== END ==
LOC: M PLAIMG 12:55
PROVIDERS: ATTEND Physician Assistant
DX: N85.2 Hypertrophy of uterus (principal); N20.0 Calculus of kidney; R31.9 Hematuria, unspecified

== ENCOUNTER → 2022-12-27 | Outpatient (CLI) | payer OTHER | LOC: M PLARAD 10:22 | PROVIDERS: ATTEND Obstetrics & Gynecology | DX: R93.5 Abnormal findings on diagnostic imaging of other abdominal regions, including retroperitoneum (principal); N83.8 Other noninflammatory disorders of ovary, fallopian tube and broad ligament; R93.89 Abnormal findings on diagnostic imaging of other specified body structures ==

== ENCOUNTER → 2023-08-30 | Outpatient (CLI) | payer OTHER ==
[2023-08-30 11:26] LABS: BASO # 0.1 10^3/uL (0.0-0.2); BASO % 0.5 % (0.0-1.0); EOS # 0.2 10^3/uL (0.0-0.5); EOS % 1.2 % (0.0-3.0); HEMATOCRIT 43.5 % (36.0-47.0); HEMOGLOBIN 14.4 g/dl (12.0-15.5); LYMPH # 3.4 10^3/uL (1.5-5.0); LYMPH % 24.3 % (24.0-44.0); MEAN CORPUSCULAR HEMOGLOBIN 30.3 pg (27.0-33.0); MEAN CORPUSCULAR HGB CONC 33.1 g/dl (32.0-36.5); MEAN CORPUSCULAR VOLUME 91.4 fl (80.0-96.0); MONO # 1.1 10^3/uL (0.0-0.8); MONO % 7.7 % (2.0-8.0); NEUTROPHILS # 9.2 10^3/uL (1.5-8.5); NEUTROPHILS % 65.6 % (36.0-66.0); PLATELET COUNT, AUTOMATED 292 10^3/uL (150-450); RED BLOOD COUNT 4.76 10^6/uL (4.00-5.40)
[2023-08-30 11:31] LABS: C REACTIVE PROTEIN QUANTITATIV < 0.40 MG/DL (<1.0)
[2023-08-30 11:32] LABS: ALBUMIN 3.8 G/DL (3.2-5.2); ALKALINE PHOSPHATASE 66 U/L (46-116); ALT/SGPT 16 U/L (7.0-40); AST/SGOT 14 U/L (<34); BILIRUBIN,TOTAL 0.6 MG/DL (0.3-1.2); BLOOD UREA NITROGEN 16 MG/DL (9-23); CALCIUM LEVEL 9.4 MG/DL (8.5-10.1); CARBON DIOXIDE LEVEL 30 MMOL/L (20-31); CHLORIDE LEVEL 107 MMOL/L (98-107); CREATININE FOR GFR 0.71 MG/DL (0.55-1.30); GLOMERULAR FILTRATION RATE > 60.0 (>60); GLUCOSE, FASTING 81 MG/DL (60-100); POTASSIUM SERUM 4.1 MMOL/L (3.5-5.1); SODIUM LEVEL 143 MMOL/L (136-145); TOTAL PROTEIN 6.6 G/DL (5.7-8.2)
[2023-08-30 11:35] LABS: VITAMIN B12 LEVEL 350 PG/ML (211-911)
[2023-08-30 11:38] LABS: CPK CREATINE PHOSPHOKINASE 53 U/L (34-145); FOLATE > 24.0 NG/ML (>5.4)
[2023-08-30 11:39] LABS: ERYTHROCYTE SEDIMENTATION RATE 10 mm/hr (0-20)
== END ==
LOC: M PLALAB 08:48
PROVIDERS: ATTEND Physician Assistant
DX: G95.0 Syringomyelia and syringobulbia (principal)

== ENCOUNTER → 2023-09-25 | Outpatient (CLI) | payer OTHER ==
[~2023-09-25] MED LIST changes: +PROHANCE 279.3MG/ML 15ML VIAL ONE
== END ==
LOC: M PLAIMG 07:51
PROVIDERS: ATTEND Physician Assistant
DX: G95.0 Syringomyelia and syringobulbia (principal); M50.221 Other cervical disc displacement at C4-C5 level; M50.222 Other cervical disc displacement at C5-C6 level; M51.24 Other intervertebral disc displacement, thoracic region

== ENCOUNTER → 2023-09-26 | Outpatient (CLI) | payer OTHER | LOC: M PLAIMG 07:41 | PROVIDERS: ATTEND Physician Assistant | DX: G95.0 Syringomyelia and syringobulbia (principal) | CPT/HCPCS: 72158; A9576 ==

== ENCOUNTER → 2023-11-05 | Outpatient (CLI) | payer OTHER ==
[~2023-11-05] MED LIST changes: -PROHANCE 279.3MG/ML 15ML VIAL ONE
[2023-11-05 12:12] LABS: BASO # 0.1 10^3/uL (0.0-0.2); BASO % 0.4 % (0.0-1.0); EOS # 0.1 10^3/uL (0.0-0.5); EOS % 0.4 % (0.0-3.0); HEMATOCRIT 44.3 % (36.0-47.0); HEMOGLOBIN 14.6 g/dl (12.0-15.5); LYMPH # 4.3 10^3/uL (1.5-5.0); LYMPH % 24.9 % (24.0-44.0); MEAN CORPUSCULAR HEMOGLOBIN 30.3 pg (27.0-33.0); MEAN CORPUSCULAR VOLUME 91.9 fl (80.0-96.0); MONO # 1.8 10^3/uL (0.0-0.8); MONO % 10.4 % (2.0-8.0); NEUTROPHILS # 10.8 10^3/uL (1.5-8.5); NEUTROPHILS % 63.4 % (36.0-66.0); PLATELET COUNT, AUTOMATED 348 10^3/uL (150-450); RED BLOOD COUNT 4.82 10^6/uL (4.00-5.40); WHITE BLOOD COUNT 17.1 10^3/uL (4.0-10.0)
[2023-11-05 12:23] LABS: ERYTHROCYTE SEDIMENTATION RATE 7 mm/hr (0-20)
[2023-11-05 12:34] LABS: URIC ACID 3.4 MG/DL (3.1-7.8)
[2023-11-05 12:36] LABS: C REACTIVE PROTEIN QUANTITATIV < 0.40 MG/DL (<1.0)
[2023-11-05 12:37] LABS: ALKALINE PHOSPHATASE 70 U/L (46-116); ALT/SGPT 13 U/L (7.0-40); AST/SGOT < 8 U/L (<34); BILIRUBIN,TOTAL 0.3 MG/DL (0.3-1.2); BLOOD UREA NITROGEN 22 MG/DL (9-23); CALCIUM LEVEL 9.8 MG/DL (8.5-10.1); CARBON DIOXIDE LEVEL 30 MMOL/L (20-31); CHLORIDE LEVEL 105 MMOL/L (98-107); CREATININE FOR GFR 0.85 MG/DL (0.55-1.30); GLOMERULAR FILTRATION RATE > 60.0 (>60); GLUCOSE, FASTING 82 MG/DL (60-100); POTASSIUM SERUM 4.1 MMOL/L (3.5-5.1); RHEUMATOID FACTOR QUANT 6.9 IU/ML (<14); SODIUM LEVEL 140 MMOL/L (136-145); TOTAL PROTEIN 6.6 G/DL (5.7-8.2)
[2023-11-05 12:38] LABS: FOLATE 20.33 NG/ML (>5.4)
[2023-11-05 12:39] LABS: VITAMIN B12 LEVEL 454 PG/ML (211-911)
== END ==
LOC: M PLAIMG 07:25
PROVIDERS: ATTEND Physician Assistant
DX: G43.409 Hemiplegic migraine, not intractable, without status migrainosus (principal); R53.1 Weakness; R90.89 Other abnormal findings on diagnostic imaging of central nervous system

== ENCOUNTER → 2023-12-18 | Outpatient (CLI) | payer OTHER ==
[~2023-12-18] MED LIST changes: +PROHANCE 279.3MG/ML 15ML VIAL ONE
== END ==
LOC: M PLAIMG 08:52
PROVIDERS: ATTEND Physician Assistant
DX: G43.409 Hemiplegic migraine, not intractable, without status migrainosus (principal); R53.1 Weakness; E34.8 Other specified endocrine disorders
CPT/HCPCS: 70553; A9576

== ENCOUNTER → 2025-06-03 | Outpatient (CLI) | payer MEDICAID ==
[~2025-06-03] MED LIST changes: -PROHANCE 279.3MG/ML 15ML VIAL ONE; +PROZ10CA11 PO; -PROZ10CA7 PO; -PROZ20CA11 PO; +PROZ20CA12 PO
== END ==
LOC: M RAD 12:38
PROVIDERS: ATTEND Nurse Practitioner Adult Health
DX: R07.81 Pleurodynia (principal); M54.2 Cervicalgia